=== PATIENT | female | born 1935 | race Two or more races ===

== ENCOUNTER 2024-05-14 16:40 | Inpatient (IN) | payer MEDICARE, MEDICAID, SELFPAY ==
[2024-05-14] VITALS (17 sets, daily range): BP systolic 128–210; BP diastolic 76–105; PULSE 60–78; RESP 16–18; TEMP 36.3–36.6; O2SAT 94–100; BMI 29.5
--- NOTE | 2024-05-14 16:41 | PC.NURSE ---
Pt. arrived from home, per auto design detailer Nahum family called because pt. was choking, on scene Nahum stated pt. was a GCS of 15, then slowly started to decline and pt.'s speech became slurred. Stroke alert called and pt. taken straight to CT.
--- NOTE | 2024-05-14 16:43 | EKG_ITS ---
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
--- NOTE | 2024-05-14 16:43 | XR_ITS ---
Examination: CT brain head without contrast. 2-D sagittal coronal reconstructions Date and time of exam:May 14, 2024 1645 hrs. Comparison December 20, 2022 Indications: Stroke alert, onset focal neurologic deficit today, history prior stroke left cerebellar hemisphere Technique: Multiple CT axial sections of the brain have been obtained, 5 mm slice thickness. Contrast has not been administered. 2-D sagittal, coronal reconstructions have been obtained Low dose protocols were performed. One or more of the following dose reduction techniques were used; automated exposure control, adjustment of the mA and/or KV according to patient size, use of iterative reconstruction technique. Findings: No significant ventricular enlargement. Stable small calcification right frontal lobe Old infarct left cerebellar hemisphere Intra-axial or extra-axial hemorrhage density is not seen. No mass effect or midline shift Basal cisterns are not remarkable. Fourth ventricle is midline. Cranial vault intact. Impression: Negative for acute hemorrhage, mass effect or midline shift
--- NOTE | 2024-05-14 16:43 | XR_ITS ---
Examination: CTA carotids with intravenous contrast CTA brain, head with intravenous contrast. 2-D sagittal, coronal reconstructions. 3-D reconstructions. Exam date and time: May 14, 2024 1649 hrs. Indications: New onset slurred speech beginning 30 minutes ago, stroke alert CTDI: vol (mGy) 35.9 DLP: (mGycm) 437 Technique: Multiple CTA axial brain, head carotid images post intravenous contrast injection 75 cc, Isovue-370. 2-D sagittal, coronal reconstructions. 3-D reconstructions, 3-D post processing including vascular maximum intensity projection images. Low dose protocols were performed. One or more of the following dose reduction techniques were used; automated exposure control, adjustment of the mA and/or KV according to patient size, use of iterative reconstruction technique. Findings: No significant common carotid carotid bifurcation or internal carotid artery stenoses No filling of the left vertebral artery in the neck except for distally which may represent retrograde flow There is incomplete filling of the M1 segments of both middle cerebral arteries There is incomplete filling of the left posterior cerebral artery, clinical correlation advised No acute thrombus is depicted Impression: There is no filling of the left vertebral artery the neck except for distally which may represent retrograde flow There is incomplete filling of the M1 segments posterior cerebral arteries and left posterior cerebral artery, clinical correlation advised Of note, differential for the extensive edema on the brain scan today may be secondary to brain neoplasm rather than acute infarcts
--- NOTE | 2024-05-14 16:44 | PC.NURSE ---
Dr. Madrid on tele monitor talking with pt., pt. able to identify cactus, glove and person. Pt. GCS OF 15.
--- NOTE | 2024-05-14 16:47 | EDNOTE_ITS ---
Neuro Symptoms Deficit-RME/HPI General Chief Complaint: Altered Mental Status Stated Complaint: STROKE Time Seen by Provider: 05/14/24 16:43 Arrival date/time: 05/14/24 16:40 Limitations: no limitations RME / HPI RME / HPI Narrative: 88 year old female with history of hypertension, s/p pacemaker placement presents to the ED BIBA from home for stroke like symptoms today. Per medics, family on scene reported patient had an episode of becoming stiff with a blank stare, occurring only once at ~ 16:07. When they arrived on scene state the patient initially was speaking full sentences, in Korean, and refusing to come to the hospital. Medics state while checking her vitals noted patient began babbling and speech became incomprehensible. On arrival to ED patient noted to have facial droop and aphasia. Related Data Allergies Allergy/AdvReac Type Severity Reaction Status Date / Time NKA* Allergy Uncoded 12/20/22 14:11 Review of Systems Review of Systems Systems Reviewed: All systems reviewed, normal except as documented Past Medical History Past Medical History CARDIAC: Positive Congestive Heart Failure and Hypertension RESPIRATORY: Negative Chronic Obstructive Pulmonary Disease (COPD) GENITOURINARY: Negative Renal Disease ENDOCRINE: Negative Diabetes Mellitus Type 1 or Diabetes Mellitus Type 2 Social History SMOKING STATUS: Never smoker ED Exam Narrative Physical exam: Physical exam is from arrival General Limitations: Present no limitations General appearance: Present other (aphasic, making noisy breath sounds and had a slight facial droop on the left, was able to move all 4 extremities ) Head Head exam: Present atraumatic, normocephalic and normal inspection Eye Eye exam: Present normal appearance and EOMI ENT ENT exam: Present normal exam, normal oropharynx and mucous membranes moist Neck Neck exam: Present normal inspection and full ROM Chest Chest inspection: Present normal inspection and symmetric chest wall rise Respiratory Respiratory exam: Present normal lung sounds bilaterally Cardiovascular Cardiovascular exam: Present regular rate, normal rhythm and normal heart sounds Abdominal Exam Abdominal exam: Present soft and normal bowel sounds Extremities Exam Extremities exam: Present normal inspection and full ROM Back Exam Back exam: Present normal inspection and full ROM Neurological Exam Neurological exam: Present other (aphasic, making noisy breath sounds and had a slight facial droop on the left, was able to move all 4 extremities ) Skin Skin exam: Present warm, dry, intact and normal color Course Course Course Narrative: 1800: Patient signed out to Dr. Durbin pending remainder of work-up and admission. Quality Measures Suspected type of Stroke: Non Acute Last known well (date): 05/14/24 Last known well (time): 16:30 Tenecteplase given: Reason(s) TPA not given: Stroke severity too mild (non-disabling) not given stroke Orders Category Date Time Status Patient Condition Routine Admission 05/14/24 20:33 Ordered Activity as Tolerated Routine Care 05/14/24 20:34 Ordered Bedside Blood Glucose NOW Care 05/14/24 16:43 Active COVID-19 Screening Questionnaire NOW Care 05/14/24 19:33 Active Junior Linux Administrator NOW Care 05/14/24 16:43 Active Continuous Pulse Oximetry NOW Care 05/14/24 16:43 Completed Decision to Admit X1 Care 05/14/24 19:33 Active EKG (ED ONLY) *Do not use* NOW Care 05/14/24 16:43 Completed In and Out Catheter NEEDED Care 05/14/24 16:43 Active Insert IV NOW Care 05/14/24 16:43 Active Intake and Output QSHIFT Care 05/14/24 20:45 Ordered NIH Stroke Scale now Care 05/14/24 16:43 Active NPO NOW Care 05/14/24 16:43 Active NPO NOW Care 05/14/24 20:34 Active Notify provider NEEDED Care 05/14/24 20:33 Active Nurse Swallow Screen x1 Care 05/14/24 16:43 Active Seizure precautions NEEDED Care 05/14/24 20:34 Active Consult to Cardiology Stat Cons 05/14/24 20:59 Ordered Consult to Neurology / Tele-Neurology Routine Cons 05/14/24 16:43 Active Consult to Neurology / Tele-Neurology Routine Cons 05/14/24 20:38 Active Diet NPO (NOW) Diet 05/14/24 20:[address] angio stroke protocol Stat Exams 05/14/24 16:[address] stroke protocol Stat Exams 05/14/24 16:43 Completed EKG (ED Only) Stat Exams 05/14/24 16:43 Ordered XR chest 1V post procedure Stat Exams 05/14/24 17:25 Completed ABG [Arterial Blood Gas] Stat Lab 05/14/24 17:16 Completed Arterial Blood Gas Stat Lab 05/14/24 18:30 Completed Blood Culture (Lab) Routine Lab 05/14/24 21:02 Received CBC AM DRAW Lab 05/15/24 05:00 Ordered CBC AM DRAW Lab 05/16/24 05:00 Ordered CBC AM DRAW Lab 05/17/24 05:00 Ordered CBC Stat Lab 05/14/24 16:54 Completed Comprehensive Metabolic Panel AM DRAW Lab 05/15/24 05:00 Ordered Comprehensive Metabolic Panel AM DRAW Lab 05/16/24 05:00 Ordered Comprehensive Metabolic Panel AM DRAW Lab 05/17/24 05:00 Ordered Comprehensive Metabolic Panel Stat Lab 05/14/24 16:54 Completed Drug Screen,Urine Stat Lab 05/14/24 17:37 Completed HCG Titer if Positive Stat Lab 05/14/24 16:54 Completed Magnesium AM DRAW Lab 05/15/24 05:00 Ordered Magnesium AM DRAW Lab 05/16/24 05:00 Ordered Magnesium AM DRAW Lab 05/17/24 05:00 Ordered Magnesium Stat Lab 05/14/24 16:54 Completed Partial Thromboplastin Time Stat Lab 05/14/24 18:42 Completed Phosphorous AM DRAW Lab 05/15/24 05:00 Ordered Phosphorous AM DRAW Lab 05/16/24 05:00 Ordered Phosphorous AM DRAW Lab 05/17/24 05:00 Ordered Prothrombin Time with INR Stat Lab 05/14/24 18:42 Completed Sputum Culture and Gram Stain Stat Lab 05/14/24 17:25 Ordered Troponin I Stat Lab 05/14/24 16:54 Completed Urinalysis Stat Lab 05/14/24 17:37 Completed Acetaminophen Supp [Tylenol Supp] Med 05/14/24 20:31 Active 650 mg ME Q6HR PRN Etomidate Inj [Amidate Inj] Med 05/14/24 17:11 Discontinued 20 mg IVP X1 ONE Heparin Inj Med 05/14/24 22:00 Active 5,000 unit SC Q8HR Ondansetron Inj [Zofran Inj] Med 05/14/24 16:43 Active 4 mg IV Q4HR PRN Propofol 1,000 mg Ivpb [Diprivan Ivpb] Med 05/14/24 18:05 Active 1,000 mg in 100 ml IV 5 mcg/kg/min Rocuronium Inj [Zemuron Inj] Med 05/14/24 17:12 Discontinued 50 mg IVP X1 ONE fentaNYL 2,500 MCG/250 ML BAG [Sublimaze Inj 2,500 MCG/ Med 05/14/24 20:39 Active 250 ML BAG] 2,500 mcg in 250 ml IV 25 mcg/hr Code Status Routine Oth 05/14/24 20:31 Ordered Oxygen Delivery NOW RT 05/14/24 16:43 Active Volume Ventilator Stat RT 05/14/24 Active Reevaluation(s) Reevaluation #1: I was called in to the room by RN. Reports while coming back from CT patient began to having episodes of noisy/snoring respiration. Patient obtunded and unresponsive, symmetrical face. Patient saturating 91-92% on room air. Decision was made to intubate to protect her airway. Time: 17:08 Reevaluation #2: I spoke with patients daughter and family. We reviewed all the results, analysis, and treatment plans. Time: 17:50 Vital Signs Vital signs: Vital Signs Pulse Rate 60 05/14/24 16:41 Procedures -ED Intubation Time out performed: Yes sedative: Etomidate Mg Given: 20 paralytic: Rocuronium Mg Given: 50 Laryngoscope: fiber optic video scope Assist Device Used: fiber optic device ET Tube Size: 7 ET Tube Uncuffed: No Tube Secured Depth (cm): 22 Tube Secured Location: other (gum) Tube Placement Confirmation: visualized tube passing through cords, equal breath sounds bilaterally, no breath sounds over epigastrium and confirmation by capnometry Patient Tolerated Procedure: well and no complications Intubation Complications: none Neuro Symptoms / Deficit MDM Narrative MDM Narrative:: Negrita Crawford am scribing for and in the presence of Dr. Ramírez. Patient data External records reviewed:: [facility] previous records (I reviewed ED visit on 12/20/2022) and EMS form Clinical information provided by:: EMS Social determinants that could affect healthcare access:: none Patient has the following chronic illnesses:: Hypertension, s/p pacemaker placement How is presenting disease/condition affected by chronic disease/condition?: exacerbated by Evaluation data The following diagnostics were reviewed and interpreted by me:: lab results, radiology exam(s) and EKG tracing(s) (Atrial paced, rate 59, no acute ST or T- wave changes, no STEMI. ) Lab and/or radiology exams considered but not ordered:: None Interpretation Summary: Ordering Physician: Josué Ramírez MD Date of Service: 05/14/24 Procedure(s): CT stroke protocol Accession Number(s): [id number] cc: Josué Ramírez MD; Jayden Ambrose MD~ Examination: CT brain head without contrast. 2-D sagittal coronal reconstructions Date and time of exam:May 14, 2024 1645 hrs. Comparison December 20, 2022 Indications: Stroke alert, onset focal neurologic deficit today, history prior stroke left cerebellar hemisphere Technique: Multiple CT axial sections of the brain have been obtained, 5 mm slice thickness. Contrast has not been administered. 2-D sagittal, coronal reconstructions have been obtained Low dose protocols were performed. One or more of the following dose reduction techniques were used; automated exposure control, adjustment of the mA and/or KV according to patient size, use of iterative reconstruction technique. Findings: No significant ventricular enlargement. Stable small calcification right frontal lobe Old infarct left cerebellar hemisphere Intra-axial or extra-axial hemorrhage density is not seen. No mass effect or midline shift Basal cisterns are not remarkable. Fourth ventricle is midline. Cranial vault intact. Impression: Negative for acute hemorrhage, mass effect or midline shift Dictated By: Jayden Ambrose MD Signed By: <Electronically signed by Jayden Ambrose MD in OV> 05/14/241648 Ordering Physician: Josué Ramírez MD Date of Service: 05/14/24 Procedure(s): CT angio stroke protocol Accession Number(s): [id number] cc: Josué Ramírez MD; Jayden Ambrose MD; NO PRIMARY/FAMILY,PHYSICIAN~ Examination: CTA carotids with intravenous contrast CTA brain, head with intravenous contrast. 2-D sagittal, coronal reconstructions. 3-D reconstructions. Exam date and time: May 14, 2024 1649 hrs. Indications: New onset slurred speech beginning 30 minutes ago, stroke alert CTDI: vol (mGy) 35.9 DLP: (mGycm) 437 Technique: Multiple CTA axial brain, head carotid images post intravenous contrast injection 75 cc, Isovue-370. 2-D sagittal, coronal reconstructions. 3-D reconstructions, 3-D post processing including vascular maximum intensity projection images. Low dose protocols were performed. One or more of the following dose reduction techniques were used; automated exposure control, adjustment of the mA and/or KV according to patient size, use of iterative reconstruction technique. Findings: No significant common carotid carotid bifurcation or internal carotid artery stenoses No filling of the left vertebral artery in the neck except for distally which may represent retrograde flow There is incomplete filling of the M1 segments of both middle cerebral arteries There is incomplete filling of the left posterior cerebral artery, clinical correlation advised No acute thrombus is depicted Impression: There is no filling of the left vertebral artery the neck except for distally which may represent retrograde flow There is incomplete filling of the M1 segments posterior cerebral arteries and left posterior cerebral artery, clinical correlation advised Of note, differential for the extensive edema on the brain scan today may be secondary to brain neoplasm rather than acute infarcts Dictated By: Jayden Ambrose MD Signed By: <Electronically signed by Jayden Ambrose MD in OV> 05/14/24 1747 Medications / Prescriptions Medications or Prescriptions considered but not ordered:: None Medication administrations:: Medication Administration History Acetaminophen (Acetaminophen Supp 650 Mg Supp) 650 mg ME Q6HR PRN PRN Reason: Fever > 100.4 Stop: 06/13/24 20:30 Heparin Sodium (Porcine) (Heparin Sod Inj 5000 Unit/Ml Vial) 5,000 unit SC Q8HR [facility] Stop: 05/28/24 21:59 Last Admin: 05/15/24 05:13 Dose: 5,000 unit Documented By: MALIK Co-signed By: MAME Admin: 05/14/24 22:56 Dose: 5,000 unit Documented By: MALIK Co-signed By: SA Propofol (Diprivan Ivpb) 1,000 mg in 100 mls @ 2.273 mls/hr IV .Q24H PRN; Protocol PRN Reason: PER PROTOCOL Stop: 06/13/24 18:04 Last Titration: 05/15/24 05:05 Dose: 0 mcg/kg/min, 0 mls/hr Documented By: Titration: 05/15/24 05:00 Dose: 5 mcg/kg/min, 2.273 mls/hr Documented By: Titration: 05/15/24 04:00 Dose: 10 mcg/kg/min, 4.545 mls/hr Documented By: Titration: 05/15/24 03:00 Dose: 10 mcg/kg/min, 4.545 mls/hr Documented By: Titration: 05/15/24 02:00 Dose: 10 mcg/kg/min, 4.545 mls/hr Documented By: Titration: 05/15/24 01:00 Dose: 10 mcg/kg/min, 4.545 mls/hr Documented By: Titration: 05/15/24 00:00 Dose: 10 mcg/kg/min, 4.545 mls/hr Documented By: Titration: 05/14/24 23:05 Dose: 10 mcg/kg/min, 4.545 mls/hr Documented By: Titration: 05/14/24 23:00 Dose: 15 mcg/kg/min, 6.818 mls/hr Documented By: Titration: 05/14/24 22:31 Dose: 15 mcg/kg/min, 6.818 mls/hr Documented By: Titration: 05/14/24 19:37 Dose: 15 mcg/kg/min, 6.818 mls/hr Documented By: Titration: 05/14/24 19:00 Dose: 10 mcg/kg/min, 4.545 mls/hr Documented By: Admin: 05/14/24 18:18 Dose: 5 mcg/kg/min, 2.273 mls/hr Documented By: ED Co-signed By: DO Fentanyl Citrate (Sublimaze Inj 2,500 Mcg/250 Ml Bag) 2,500 mcg in 250 mls @ 2.5 mls/hr IV .Q24H PRN; Protocol PRN Reason: PER PROTOCOL Stop: 05/19/24 20:38 Last Titration: 05/15/24 05:00 Dose: 75 mcg/hr, 7.5 mls/hr Documented By: Titration: 05/15/24 04:00 Dose: 75 mcg/hr, 7.5 mls/hr Documented By: Titration: 05/15/24 03:00 Dose: 75 mcg/hr, 7.5 mls/hr Documented By: Titration: 05/15/24 02:00 Dose: 75 mcg/hr, 7.5 mls/hr Documented By: Titration: 05/15/24 01:00 Dose: 75 mcg/hr, 7.5 mls/hr Documented By: Titration: 05/15/24 00:00 Dose: 75 mcg/hr, 7.5 mls/hr Documented By: Titration: 05/14/24 23:05 Dose: 75 mcg/hr, 7.5 mls/hr Documented By: Titration: 05/14/24 23:00 Dose: 2.5 mcg/hr, 0.25 mls/hr Documented By: ZTuan Admin: 05/14/24 22:35 Dose: 25 mcg/hr, 2.5 mls/hr Documented By: MALIK Co-signed By: Sodium Chloride (Ns) 500 mls @ 999 mls/hr IV .Q31M ONE Stop: 05/15/24 05:40 Last Admin: 05/15/24 05:13 Dose: 999 mls/hr Documented By: MALIK Norepinephrine/Dextrose (Levophed In D5w 8mg/250ml) 8 mg in 250 mls @ 7.102 mls/hr IV .Q24H PRN; Protocol PRN Reason: PER PROTOCOL Stop: 06/14/24 05:09 Ondansetron HCl (Ondansetron Inj 2 Mg/Ml Inj 2 Ml) 4 mg IV Q4HR PRN PRN Reason: NAUSEA OR VOMITING Stop: 06/13/24 16:42 Discontinued Medications Etomidate (Etomidate Inj 2 Mg/Ml Vial 10 Ml) 20 mg IVP X1 ONE Stop: 05/14/24 17:12 Last Admin: 05/14/24 17:20 Dose: 20 mg Documented By: ED Norepinephrine/Dextrose (Levophed In D5w 8mg/250ml) Confirm Administered Dose 8 mg in 250 mls @ ud IV .STK-MED ONE Stop: 05/15/24 05:00 Last Admin: 05/15/24 05:19 Dose: Not Given Documented By: MALIK Non-Admin Reason: Returned to Pyxis. Rocuronium [place] (Rocuronium Inj 10 Mg/Ml Vial 10 Ml) 50 mg IVP X1 ONE Stop: 05/14/24 17:13 Last Admin: 05/14/24 17:21 Dose: 50 mg Documented By: ED Co-signed By: JUAN See above Consultations Consultation(s) initiated? (list below): Yes Consultation #1 (Physician, Specialty, Details): I spoke with teleneurologist Dr. Vargas. Discussed patients PMHx, HPI, ED course, exam findings, and radiology results. Reports patient is not a tpa candidate given her symptoms had resolved, patient was following commands and answering questions appropriately. Advised it may be a metabolic disturbance vs seizure activity. Recommended EEG and MRI brain. Time: 17:05 Consultation #2 (Physician, Specialty, Details): I again spoke with teleneurologist Dr. Vargas after patient had acute changes in mental status. State he has reviewed CTA and there is no LVO. Time: 17:10 Consultation #3 (Physician, Specialty, Details): I spoke with paragliding instructor Dr. Gamino. Discussed patients PMHx, HPI, ED course, exam findings, labs, and CT head results. Advised the work-up is not yet complete and will call with updates. Time: 17:47 Diagnosis Neuro Differential Diagnosis: subarachnoid hemorrhage, cerebrovascular accident and transient cerebral ischemia Most likely diagnosis given after review of the tests above:: Abtunded. Intubated. AMS Admission Indicated Admission indicated?: indicated Explain why admission is indicated or not indicated:: Patient signed out to Dr. Durbin pending admission. Admission Request Was there a request for admission?: No Disposition Plan Disposition Plan: other (specify) (Signed out to Dr. Durbin.) Critical Care Time Critical Care Time Critical Care Time: Yes Total Critical Care Time (min.): 30 Attestation: The high probability of sudden, clinically significant deterioration in the patient's condition required the highest level of my preparedness to intervene urgently. The services I provided to this patient were to treat and/or prevent clinically significant deterioration. Services included the following: chart data review, reviewing nursing notes and/or old charts, documentation time, custom decorating consultant collaboration regarding findings and treatment options, medication orders and management, direct patient care, vital sign assessments and ordering, interpreting and reviewing diagnostic studies and lab tests. Aggregate critical care time includes only time during which I was engaged in work directly related to the patient's care, as described above, whether at bedside or elsewhere in the Emergency Department. It did not include time spent performing other reported procedures or the services of residents, students, nurses or physician assistants. Discharge Plan Plan Patient Disposition: Admit Acute Care w/in Hospital Disposition Comment: Dr. Gamino, ICU Problem List Clinical Impression: Altered mental status, Acute respiratory failure, Hypertensive urgency, Cerebral edema
--- NOTE | 2024-05-14 17:08 | PC.NURSE ---
Pt. to room 4, Dr. Ramírez bedside, pt. not answering and has noisy breathing.
[2024-05-14 17:20] LABS: Base Excess 5 (-3-3); HCO3 31 mEq/L (20-26); Inspired Oxygen, FIO2 21 %; O2 Saturation 94 % (91-98); PCO2 55 mmHg (32.0-48.0); PO2 70 mmHg (83-108); pH, Arterial 7.36 (7.35-7.45)
[2024-05-14] MEDS: ETOMIDATE INJ 2 MG/ML VIAL 10 ML 20 MG IVP (17:20)
[2024-05-14 17:21] LABS: Alanine Aminotransferase 19 U/L (10-49); Albumin, Serum 4.3 gm/dL (3.4-4.8); Albumin/Globulin Ratio 1.5 (1.2-2.2); Alkaline Phosphatase 83 U/L (46-116); Anion Gap 4 (7-16); Aspartate Amino Transferase 29 U/L (0-34); BUN/Creatinine Ratio 20 Ratio (12-20); Bilirubin,Total 0.3 mg/dL (0.3-1.2); Blood Urea Nitrogen 16 mg/dL (9-23); Calcium 9.4 mg/dL (8.3-10.6); Calcium (Corrected) 9.4 mg/dL (8.5-10.1); Carbon Dioxide 30.1 mMol/L (20.0-31.0); Chloride 98 mMol/L (98-107); Creatinine (Component) 0.8 mg/dL (0.6-1.3); Estimated Creatinine Clearance 46.3 mL/min (>60); Globulin 2.9 gm/dL (2.3-3.5); Glucose 94 mg/dL (74-106); Osmolality,Calculated 265 (275-295); Potassium 5.3 mMol/L (3.4-5.1); Sodium 132 mMol/L (136-145); Total Protein 7.2 gm/dL (5.7-8.2); Troponin I < 0.020 ng/mL (0.0-0.045); eGFR > 60 See Note
[2024-05-14 17:21] LABS: Allen Test Performed/OK; Puncture Site Right Radial
[2024-05-14] MEDS: ROCURONIUM INJ 10 MG/ML VIAL 10 ML 50 MG IVP (17:21)
--- NOTE | 2024-05-14 17:23 | ESCONSULT_ITS ---
Tele Neuro Consultation Consultation Date 05/14/24 Most Recent Vital Signs Last Vital Signs Pulse 60 05/14/24 16:41 Consultation Narrative [facility] Tele[facility]urology Consult Services Patient Name:???Kandice Llamas Date of :???1935 Identification Number:??? Date of Service:???05/14/2024 16:40:45 Diagnosis:?G93.49 - Encephalopathy Multifactorial Impression: ?88 y/o woman presenting with AMS. Not a thrombolytic candidate as there is no focal deficits on examination suggestive of stroke. Upon my initial evaluation she became responsive, talkative and was able to follow commands with NIHSS. However after my evaluation I was called back by ED stating that she had again become obtunded. No focal deficits noted per ED, continues to not be a thrombolytic candidate as stroke looks unlikely. CTA unrevealing for basilar stenosis/occlusion on my personal review. Metabolic disturbance a possibility, as is seizure activity. Would recommend cEEG monitoring and MRI brain. Sign Out: ? Discussed with Emergency Department Provider Advanced Imaging: CTA Head and Neck Completed. CTP Completed. LVO:No Patient in not a candidate for GELY Metrics: Last Known Well: 05/14/2024 16:30:00 Dispatch Time: 05/14/2024 16:40:45 Arrival Time: 05/14/2024 16:40:00 Initial Response Time: 05/14/2024 16:42:41Symptoms: unresponsiveness. Initial patient interaction: 05/14/2024 16:52:28 NIHSS Assessment Completed: 05/14/2024 17:05:12Patient is not a candidate for Thrombolytic. Thrombolytic Medical Decision: 05/14/2024 17:05:17Patient was not deemed candidate for Thrombolytic because of following reasons: Resolved symptoms . I personally Reviewed the CT Head and it Showed no acute hemorrhage Primary Provider Notified of Diagnostic Impression and Management Plan on: 05/14/2024 17:10:46 History of Present Illness:Patient is a 88 year old Female. Patient was brought by EMS for symptoms of unresponsiveness. 88 y/o woman with history of CHF and HTN presenting with unresponsiveness. She was at home, family thought she was choking due becoming stiff and stared at around 1600. EMS got there and she became progressively more unresponsive and unable to speak. Past Medical History: ?Hypertension ?Stroke Medications: No Anticoagulant use? No Antiplatelet use Reviewed EMR for current medications Allergies:? Reviewed Social History: Drug Use: No Family History: There is no family history of premature cerebrovascular disease pertinent to this consultation ROS : 14 Points Review of Systems was performed and was negative except mentioned in HPI. Past Surgical History: There Is No Surgical History Contributory To Today?s Visit Examination: BP(180/65),?Pulse(61), 1A: Level of Consciousness - Alert; keenly responsive?+ 0 1B: Ask Month and Age - 1 Question Right?+ 1 1C: Blink Eyes & Squeeze Hands - Performs Both Tasks?+ 0 2: Test Horizontal Extraocular Movements - Normal?+ 0 3: Test Visual Sifuentes - No Visual Loss?+ 0 4: Test Facial Palsy (Use Grimace if Obtunded) - Normal symmetry?+ 0 5A: Test Left Arm Motor Drift - No Drift for 10 Seconds?+ 0 5B: Test Right Arm Motor Drift - No Drift for 10 Seconds?+ 0 6A: Test Left Leg Motor Drift - No Drift for 5 Seconds?+ 0 6B: Test Right Leg Motor Drift - No Drift for 5 Seconds?+ 0 7: Test Limb Ataxia (FNF/Heel-Sherwood) - No Ataxia?+ 0 8: Test Sensation - Normal; No sensory loss?+ 0 9: Test Language/Aphasia - Normal; No aphasia?+ 0 10: Test Dysarthria - Normal?+ 0 11: Test Extinction/Inattention - No abnormality?+ 0 NIHSS Score:?1 Pre-Morbid Modified [place] Scale:Unable to assess Spoke with :?Dr. Ramírez This consult was conducted in real time using interactive audio and video technology. Patient was informed of the technology being used for this visit and agreed to proceed. Patient located in hospital and provider located at home/office setting. Patient is being evaluated for possible acute neurologic impairment and high probability of imminent or life-threatening deterioration. I spent total of 41 minutes providing care to this patient, including time for face to face visit via telemedicine, review of medical records, imaging studies and discussion of findings with providers, the patient and/or family. Dr Kelin Vargas [facility] For Inpatient follow-up with [facility] physician please call [facility] at . As we are not an outpatient service for any post hospital discharge needs please contact the hospital for assistance. If you have any questions for the [facility] physicians or need to reconsult for clinical or diagnostic changes please contact us via [facility] at .
--- NOTE | 2024-05-14 17:24 | PC.NURSE ---
Pt. intubated by Dr. Ramírez, tube size 7.0, 22@ the [facility], Anahy RN, Yola transmitter engineer in charge and Julianna RT at bedside.
--- NOTE | 2024-05-14 17:25 | XR_ITS ---
Examination: AP chest single view Technique: AP portable supine chest single view Exam date and time: May 14, 2024 at 1738 hrs. Comparison December 20, 2022 Indications: Hypoxic respiratory failure postintubation today, stroke alert altered mental status Findings: Tracheal tube tip 3.3 cm above lucero Prominent vascular congestion with early septal edema at the lung bases Mild enlargement cardiac contour Transvenous dual-chamber bipolar cardiac leads satisfactory position Orogastric tip appears to project in the duodenum Impression: Mild heart failure
[2024-05-14 17:43] LABS: Collection Type, Urine Clean Catch; Squamous Epithelial Cell,Urine 0 /hpf (0-5)
[2024-05-14 17:48] LABS: Bilirubin,Urine Negative (Negative); Blood,Urine Negative (Negative); Clarity,Urine Clear (Clear/Hazy); Color,Urine Lt-Yellow (Lt Yel-Yel); Glucose, Urine Negative (Negative); Ketones,Urine Negative (Negative); Leukocyte Esterase,Urine Negative (Negative); Nitrite,Urine Negative (Negative); PH,Urine 6.5 (5.0-7.0); Protein,Urine Negative (Neg - Trace); RBC,Urine 1 /hpf (0-3); Specific Gravity,Urine 1.032 (1.001-1.035); Urobilinogen,Urine Negative mg/dL (0.0-1.0); WBC,Urine < 1 /hpf (0-5)
[2024-05-14 17:54] LABS: Amphetamine/Methamp Scrn,U Negative (Negative); Barbiturate Screen,Urine Negative (Negative); Benzodiazepines Screen,Urine Negative (Negative); Benzoylecgonine Screen, Ur Negative (Negative); Fentanyl Screen,Urine Negative (Negative); Opiate Screen,Urine Negative (Negative); THC Screen,Urine Negative (Negative)
[2024-05-14 18:02] LABS: Basophils # (Auto) 0.1 Thou/mm3 (0.0-0.2); Basophils % (Auto) 1 % (0-2.5); Eosinophils # (Auto) 0.3 Thou/mm3 (0.0-0.5); Eosinophils % (Auto) 6 % (0-10); Hematocrit 31.4 % (36.0-46.0); Hemoglobin 10.4 g/dL (12.0-16.0); Immature Granulocytes % (Auto) 0 % (0-0); Immature Granulocytes Auto 0.01 Thou/mm3 (0.00-0.00); Lymphocytes # (Auto) 1.8 Thou/mm3 (1.0-4.8); Lymphocytes % (Auto) 42 % (10-50); Mean Corpuscular HGB Conc 33.1 g/dl (31.0-37.0); Mean Corpuscular Hemoglobin 29.1 pg (25.0-35.0); Mean Corpuscular Volume 88 fL (80-100); Monocytes # (Auto) 0.4 Thou/mm3 (0.0-0.8); Monocytes % (Auto) 11 % (0-12); Neutrophils # (Auto) 1.7 Thou/mm3 (1.8-7.7); Neutrophils % (Auto) 40 % (37-80); Nucleated Red Blood Cell % 0 /100 WBC (0); Platelet Count 181 Thou/mm3 (140-440); RDW Standard Deviation 51.6 fL (36.4-46.3); Red Blood Count 3.58 Miln/mm3 (4.00-5.20); White Blood Count 4.2 Thou/mm3 (3.6-11.0)
[2024-05-14 18:09] LABS: HCG Titer if Positive Negative
[2024-05-14] MEDS: PROPOFOL 1,000 MG IVPB 1,000 MG/100 ML VIAL 2.273 MG IV (18:18)
--- NOTE | 2024-05-14 18:36 | PC.NURSE ---
Vent settings: TV 350, RR 18, PEEP 5.0, FiO2 100%.
[2024-05-14 18:38] LABS: Allen Test Performed/OK; Base Excess 6 (-3-3); HCO3 30 mEq/L (20-26); Inspired Oxygen, FIO2 100 %; O2 Saturation 101 % (91-98); PCO2 39 mmHg (32.0-48.0); PO2 469 mmHg (83-108); Puncture Site Right Radial; pH, Arterial 7.49 (7.35-7.45)
--- NOTE | 2024-05-14 18:38 | PC.NURSE ---
Daughter Radha Sommers bedside states pt. has a pacemaker and has had it for 9 years.
--- NOTE | 2024-05-14 18:42 | PC.NURSE ---
Missy Sommers [phone].
--- NOTE | 2024-05-14 18:55 | PD.EDADDENDU ---
Emergency Room Addendum <Arsh Perera - Last Filed: 05/14/24 18:56> Addendum Narrative: 1800: Care assumed from Dr. Ramírez, the previous shift emergency physician. Past medical, surgical, social and family history reviewed. Vitals and home medications reviewed. I will assume the care of the patient at this time, pending CTA results and final disposition. Please refer to the emergency department record for history and examination from initial visit. OBSERVATION NOTE: The patient was placed in ED observation care at 05/13/24 at 1800. The patient was placed in ED observation care because of pending authorization for SNF placement. The patients past medical history, social history, and family history were reviewed. The plan of care will include serial examinations. <Samara Durbin MD - Last Filed: 05/14/24 19:54> Addendum Narrative: 1800: Care assumed from Dr. Ramírez, the previous shift emergency physician. Past medical, surgical, social and family history reviewed. Vitals and home medications reviewed. I will assume the care of the patient at this time, pending CTA results and final disposition. Please refer to the emergency department record for history and examination from initial visit. CTA resulted. Discussed with Dr. Gamino for admission. MD Attestation <Arsh Perera - Last Filed: 05/14/24 18:56> Attestation Scribe Attestation: Ty, Darren Perera, am scribing for and in the presence of Dr. Durbin. Provider Notation: Although this document has been carefully reviewed, there may still be some phonetic and other typographical errors. These errors are purely grammatical due to imperfections in the software program and should not be construed in any way to compromise the substance of the patient's medical care during this visit.
[2024-05-14 19:03] LABS: INR 1.1 (0.9-1.3); Partial Thromboplastin Time 26.1 Seconds (22.0-36.0); Prothrombin Time 11.5 Seconds (9.0-12.2)
--- NOTE | 2024-05-14 20:08 | PC.NURSE ---
Rreport was received from Day shift RN. First contact wqith pt: Pt5 on a vet. Appears to be tolerating well. VS stable. Alvarado cath in place. OG in place. Pt has two IVs. 20g to R FA 20g to L FA. Pupils are equal. Pt is warm to the touch. Pt appears stable at this time.
--- NOTE | 2024-05-14 20:38 | PD.RESHP ---
Documentation for date of: 05/14/24 HPI History of Present Illness History of present illness: History obtained from daughter at bedside 88 yo female with PMH of heart failure, unspecified arrythmia s/p pacemaker implantation, stroke, hypertension, who was brought in by ambulance due to AMS. Per family member patient was in her usual state of health, went shopping today and when she arrived home patient fainted when trying to get out of the car so EMS where called, during these episode family members describe she had her eyes open, starring blank, was unresponsive and her jaw was very tight , denied tonic clonic movements or incontinence. Upon EMS arrival patient was talkative oriented, vitals within normal limits, however she suddenly developed slurred speech so she was brought to the ED. Patient's daughter referred she had an appointment on Apr 30 with cardiology to assess pacemaker battery, however patient missed appointment. Patient's daughter refers patient has had arm pain for 1 day for which she could have taken more of her pain medications. ED course: On arrival patient's vitals BP 210/104, HR 60, RR 18, afebrile, saturating adequately on room air. Pertinent labs: No leukocytosis, sodium 132, potassium 5.3, UA unremarkable, U tox unremarkable. Stroke alert was called, teleneurology was consulted who referred patient was not a thrombolytic candidate as there where no focal deficits on examination suggestive of stroke. Upon teleneuro initial evaluation she was responsive, talkative and was able to follow commands with NIHSS. She subsequently became unresponsive, and was intubated for airway protection. During episode patient's vitals remained within normal limits. PMH: As above Medications: Mirtazapine, hydralazine, Lasix, pregabalin, omeprazole, tramadol, clonidine, carvedilol, meclizine, lisinopril. Review of Systems Review of Systems Systems Reviewed: All systems reviewed, normal except as documented Exam Vital Signs Temp Pulse Resp BP Pulse Ox O2 Del Method FiO2 97.7 F 66 18 162/101 H 100 Mechanical Ventilation 100 05/14/24 20:00 05/14/24 20:00 05/14/24 20:00 05/14/24 20:00 05/14/24 20:00 05/14/24 20:00 05/14/24 19:00 Narrative Exam GENERAL: Intubated, sedated HEENT: Normocephalic, atraumatic and nontender.? Pupils are equal and reactive to light and accommodation.? NECK: Supple without adenopathy. [place]que[place] midline. no JVD.? CHEST: Heart rate and rythm normal, no murmurs, gallops auscultated. S1 & 2 normal insensity. LUNGS: Lung sounds are clear.? No wheezing, rales or ronchi.? ABDOMEN: Soft,symmetric,No abnormal masses palpated.? Bowel sounds are normoactive in all 4 quadrants. EXTREMITIES: Nontender.? bilateral 1+ pitting edema,? No cyanosis.? SKIN: No rashes noted. NEURO:? Sedated Results: Labs 05/14/24 16:54 05/14/24 22:47 Labs: Short CBC 05/14/24 Range/Units 16:54 WBC 4.2 (3.6-11.0) Thou/mm3 Hgb 10.4 L (12.0-16.0) g/dL Hct 31.4 L (36.0-46.0) % Plt Count 181 (140-440) Thou/mm3 BMP 05/14/24 16:54 Sodium 132 L Potassium 5.3 H Chloride 98 Carbon Dioxide 30.1 BUN 16 Creatinine 0.8 Glucose 94 Calcium 9.4 Cardiac Enzymes 05/14/24 Range/Units 16:54 Troponin I < 0.020 (0.0-0.045) ng/mL Liver Function 05/14/24 Range/Units 16:54 Total Bilirubin 0.3 (0.3-1.2) mg/dL AST 29 (0-34) U/L ALT 19 (10-49) U/L Alkaline Phosphatase 83 (46-116) U/L Albumin 4.3 (3.4-4.8) gm/dL Urine 05/14/24 Range/Units 17:37 Urine Color Lt-Yellow (Lt Yel-Yel) Urine Clarity Clear (Clear/Hazy) Urine pH 6.5 (5.0-7.0) Ur Specific [place] 1.032 (1.001-1.035) Urine Protein Negative (Neg - Trace) Urine Glucose (UA) Negative (Negative) ABG Interpretation ABG results: 05/14/24 05/14/24 17:16 18:30 ABG pH 7.36 7.49 H D ABG pCO2 55 H 39 D ABG pO2 70 L 469 H D ABG HCO3 31 H 30 H ABG O2 Saturation 94 101 H ABG Base Excess 5 H 6 H Quality Measures Quality Measures stroke Suspected type of Stroke: Non Acute Last known well (date): 05/14/24 Last known well (time): 16:30 Tenecteplase given: Reason(s) Tenecteplase not given: Stroke severity too mild (non-disabling) not given Rehab services: PT evaluation ordered VTE Prophylaxis: pharmaceutical Antithrombotic by day 2:: not indicated (describe) Statin ordered: not ordered Anticoagulation ordered for A-fib or flutter (current or hx): not indicated Advance care planning discussed with:: patient Medications Home Medications and Allergies Allergies Allergy/AdvReac Type Severity Reaction Status Date / Time NKA* Allergy Uncoded 12/20/22 14:11 Visit Medications Acetaminophen (Acetaminophen Supp 650 Mg Supp) 650 mg NV Q6HR PRN PRN Reason: Fever > 100.4 Stop: 06/13/24 20:30 Heparin Sodium (Porcine) (Heparin Sod Inj 5000 Unit/Ml Vial) 5,000 unit SC Q8HR JOANNA Stop: 05/28/24 21:59 Propofol (Diprivan Ivpb) 1,000 mg in 100 mls @ 2.273 mls/hr IV .Q24H PRN; Protocol PRN Reason: PER PROTOCOL Stop: 06/13/24 18:04 Last Titration: 05/14/24 19:37 Dose: 15 mcg/kg/min, 6.818 mls/hr Ondansetron HCl (Ondansetron Inj 2 Mg/Ml Inj 2 Ml) 4 mg IV Q4HR PRN PRN Reason: NAUSEA OR VOMITING Stop: 06/13/24 16:42 Discontinued Medications Etomidate (Etomidate Inj 2 Mg/Ml Vial 10 Ml) 20 mg IVP X1 ONE Stop: 05/14/24 17:12 Last Admin: 05/14/24 17:20 Dose: 20 mg Rocuronium [place] (Rocuronium Inj 10 Mg/Ml Vial 10 Ml) 50 mg IVP X1 ONE Stop: 05/14/24 17:13 Last Admin: 05/14/24 17:21 Dose: 50 mg Assessment & Plan Plan 88 yo female with PMH of heart failure, unspecified arrythmia s/p pacemaker implantation, stroke, hypertension, who was brought in by ambulance due to AMS. Per family member patient was in her usual state of health, went shopping today and when she arrived home patient fainted when trying to get out of the car so EMS where called, during these episode family members describe she had her eyes open, starring blank, was unresponsive and her jaw was very tight , denied tonic clonic movements or incontinence. Upon EMS arrival patient was talkative oriented, vitals within normal limits, however she suddenly developed slurred speech so she was brought to the ED. Patient's daughter referred she had an appointment on Apr 30 with cardiology to assess pacemaker battery, however patient missed appointment. Patient's daughter refers patient has had arm pain for 1 day for which she could have taken more of her pain medications.ED course: On arrival patient's vitals BP 210/104, HR 60, RR 18, afebrile, saturating adequately on room air. Pertinent labs: No leukocytosis, sodium 132, potassium 5.3, UA unremarkable, U tox unremarkable. Stroke alert was called, teleneurology was consulted who referred patient was not a thrombolytic candidate as there where no focal deficits on examination suggestive of stroke. Upon teleneuro initial evaluation she was responsive, talkative and was able to follow commands with NIHSS. She subsequently became unresponsive, and was intubated for airway protection. During episode patient's vitals remained within normal limits. AMUSEMENT OR RECREATION CARD CHECKER #Acute encephalopathy DDX: Stroke vs Seizure vs Polypharmacy vs cardiac syncope (less likely heart rate has remained within normal parameters on telemetry) -Head CTA: No large vessel occlusion, no hemorrhage, no midline shift -Follow-up MRI -Consult neurology, appreciate recommendations -Consult cardiology, appreciate recommendations CVS #History of heart failure, hypertension and unspecified arrhythmia SP pacemaker implantation in 2012 -Patient missed appointment for pacemaker battery check up 2 weeks ago -Since arrival to the ED patient's heart rate within normal limits on telemetry -On arrival patient was hypertensive, now blood pressure within normal limits Respiratory -SP intubation for airway protection due to GCS less than 8 -ABG postintubation within normal limits Renal -Stable GI -Stable Infectious -Stable -Follow-up blood cultures Heme-onc -Stable Disposition: Patient admitted to ICU following intubation for airway protection due to acute encephalopathy Diet and fluids: N.p.o. DVT prophylaxis: Heparin GI prophylaxis: None CODE STATUS: Full code Alvarado: In place Lines: Peripheral Patient's care discussed with attending physician, Dr Kd Cesar MD PGY3 Attending Provider Attestation/Addendum 58-year-old female with hypertension, history of CVA, brought on by ambulance because of unresponsiveness, altered mentation. The patient was with family members. Patient and family came from [facility]. According to the daughter the patient went to the outside stores in [facility] and on the way to [place] she requested to have them teach her on this. She sent to children's. When they reach their destination here [place] the patient tried to get of the car but she became stiff altered. She was quite unresponsive and then she improved. The patient's daughter said when EMS came she was little bit more oriented but then became unresponsive again. She was brought to the emergency room. Patient was subsequently intubated in the ER. CT scan of the brain showed no stroke. Troponin is negative. She has a pacemaker. Patient will be admitted to the ICU for closer monitoring. Workup needed. Her son said that she was supposed to see a front office administrator for pacemaker check. She is towards the end of her pacemaker battery life. Cardiology evaluation requested.
--- NOTE | 2024-05-14 20:53 | PC.NURSE ---
Admit MD at bedside now. pt resting qietly. Pts daughter in rm now . Pt stable.
--- NOTE | 2024-05-14 21:48 | PC.NURSE ---
Pt resting. VS stable.
[2024-05-14] MEDS: fentaNYL 2,500 MCG/250 ML BAG 2,500 MCG/250 ML BAG IV (22:35)
[2024-05-14] MEDS: HEPARIN SOD INJ 5000 UNIT/ML VIAL SC (22:56)
[2024-05-14 23:23] LABS: Anion Gap 5 (7-16); BUN/Creatinine Ratio 21 Ratio (12-20); Blood Urea Nitrogen 17 mg/dL (9-23); Calcium 9.9 mg/dL (8.3-10.6); Carbon Dioxide 30.6 mMol/L (20.0-31.0); Chloride 97 mMol/L (98-107); Creatinine (Component) 0.8 mg/dL (0.6-1.3); Estimated Creatinine Clearance 46.3 mL/min (>60); Glucose 101 mg/dL (74-106); Osmolality,Calculated 267 (275-295); Potassium 4.3 mMol/L (3.4-5.1); Sodium 133 mMol/L (136-145); eGFR > 60 See Note
[2024-05-15] VITALS (48 sets, daily range): BP systolic 65–159; BP diastolic 31–93; PULSE 60–115; RESP 9–23; TEMP 36.1–36.7; O2SAT 95–100; BMI 27.8
[2024-05-15 04:28] LABS: Base Excess 4 (-3-3); HCO3 29 mEq/L (20-26); Inspired Oxygen, FIO2 40 %; O2 Saturation 98 % (91-98); PCO2 42 mmHg (32.0-48.0); PO2 94 mmHg (83-108); pH, Arterial 7.45 (7.35-7.45)
[2024-05-15 04:29] LABS: Puncture Site Right Radial
[2024-05-15 04:30] LABS: Allen Test Performed/OK
[2024-05-15] MEDS: SODIUM CHLORIDE 0.9% 500 ML 500 ML 999 ML IV (05:13)
[2024-05-15] MEDS: HEPARIN SOD INJ 5000 UNIT/ML VIAL SC ×3 (05:13→21:15)
[2024-05-15 06:52] LABS: Basophils % (Auto) 1 % (0-2.5); Eosinophils # (Auto) 0.1 Thou/mm3 (0.0-0.5); Eosinophils % (Auto) 2 % (0-10); Hematocrit 32.1 % (36.0-46.0); Hemoglobin 10.7 g/dL (12.0-16.0); Immature Granulocytes % (Auto) 1 % (0-0); Immature Granulocytes Auto 0.05 Thou/mm3 (0.00-0.00); Lymphocytes # (Auto) 1.5 Thou/mm3 (1.0-4.8); Lymphocytes % (Auto) 17 % (10-50); Mean Corpuscular HGB Conc 33.3 g/dl (31.0-37.0); Mean Corpuscular Hemoglobin 29.4 pg (25.0-35.0); Mean Corpuscular Volume 88 fL (80-100); Monocytes # (Auto) 0.8 Thou/mm3 (0.0-0.8); Monocytes % (Auto) 9 % (0-12); Neutrophils # (Auto) 6.2 Thou/mm3 (1.8-7.7); Neutrophils % (Auto) 71 % (37-80); Nucleated Red Blood Cell % 0 /100 WBC (0); Platelet Count 205 Thou/mm3 (140-440); Red Blood Count 3.64 Miln/mm3 (4.00-5.20); White Blood Count 8.7 Thou/mm3 (3.6-11.0)
[2024-05-15 07:33] LABS: Alanine Aminotransferase 16 U/L (10-49); Albumin, Serum 3.7 gm/dL (3.4-4.8); Albumin/Globulin Ratio 1.4 (1.2-2.2); Alkaline Phosphatase 76 U/L (46-116); Anion Gap 5 (7-16); Aspartate Amino Transferase 35 U/L (0-34); BUN/Creatinine Ratio 24 Ratio (12-20); Bilirubin,Total 0.4 mg/dL (0.3-1.2); Blood Urea Nitrogen 17 mg/dL (9-23); Calcium 9.1 mg/dL (8.3-10.6); Calcium (Corrected) 9.3 mg/dL (8.5-10.1); Carbon Dioxide 25.6 mMol/L (20.0-31.0); Chloride 101 mMol/L (98-107); Creatinine (Component) 0.7 mg/dL (0.6-1.3); Estimated Creatinine Clearance 51.3 mL/min (>60); Globulin 2.6 gm/dL (2.3-3.5); Glucose 102 mg/dL (74-106); Magnesium 1.8 mg/dL (1.6-2.6); Osmolality,Calculated 266 (275-295); Phosphorous 2.9 mg/dL (2.4-5.1); Potassium 4.2 mMol/L (3.4-5.1); Sodium 132 mMol/L (136-145); Total Protein 6.3 gm/dL (5.7-8.2); eGFR > 60 See Note
--- NOTE | 2024-05-15 09:16 | PC.SS ---
Patient Kandice Llamas is a 88 Year old female admitted for AMS. SS contacted patient's daughter, Lakia Liu to complete initial assessment. Patient's daughter reported patient lives in [place] alone at home. Prior to admission patient was alert and oriented. Patient does have a [facility] provider. Patient does utilize a Rollator walker to assist with ambulation, patient is able to complete ADL's independently, however does require minimal assistance. Patients PCP is Dr. Alan in [place] as well as Plastic Installer Nohemy Meraz and a Neurologist as well. Patient's daughter Lakia Liu is patient's surrogate decision maker [phone]. At time of discharge patient will return home, family will provide transportation. Discharge plan: home Next of kin: Daughter, Lakia Liu
--- NOTE | 2024-05-15 10:11 | PD.IMCONS ---
HPI Data of Consult Requesting Physician: Theodore Yi MD Primary Care Provider: Physician No Primary/Family Consult Narrative History of present illness: This is a 88 yo female with PMH of heart failure, unspecified arrythmia s/p pacemaker implantation, stroke, hypertension, pt was seen in the ER with altered level of consciousness possible syncopy cardiology consulted currently pt denies chest pain EKG shows paced rhythm troponin negative cc:: cc: Theodore Yi MD Meds Home Medications and Allergies Allergies Allergy/AdvReac Type Severity Reaction Status Date / Time NKA* Allergy Uncoded 12/20/22 14:11 Exam Vital Signs Temp Pulse Resp BP Pulse Ox O2 Del Method FiO2 97 F 60 18 113/62 99 Mechanical Ventilation 40 05/15/24 08:00 05/15/24 09:00 05/14/24 22:38 05/15/24 09:00 05/15/24 09:00 05/14/24 21:51 05/15/24 08:00 Routine HEENT Exam Head: Present normocephalic and atraumatic Eye: Present EOMI and PERRL ENT: Present mucous membranes moist Routine Neck Exam Neck: Present supple and trachea midline Routine Respiratory Exam Respiratory: Present chest non-tender, lungs clear, normal breath sounds and no resp distress Routine Cardiovascular Exam Cardiovascular: Present RRR Routine Abdominal Exam Abdominal: Present soft and normoactive bowel sounds Routine Extremities Exam Extremities: Present full ROM Routine Skin Exam Skin: Present intact, dry and warm Routine Neurological Exam Neurological: Present alert, oriented X3 and CN II-XII intact Routine Psychiatric Exam Psychiatric: Present normal affect and normal thought process Results Labs 05/15/24 06:17 05/15/24 06:17 Labs: Short CBC 05/14/24 05/15/24 Range/Units 16:54 06:17 WBC 4.2 8.7 D (3.6-11.0) Thou/mm3 Hgb 10.4 L 10.7 L (12.0-16.0) g/dL Hct 31.4 L 32.1 L (36.0-46.0) % Plt Count 181 205 (140-440) Thou/mm3 BMP 05/14/24 05/14/24 05/15/24 16:54 22:47 06:17 Sodium 132 L 133 L 132 L Potassium 5.3 H 4.3 D 4.2 Chloride 98 97 L 101 Carbon Dioxide 30.1 30.6 25.6 BUN 16 17 17 Creatinine 0.8 0.8 0.7 Glucose 94 101 102 Calcium 9.4 9.9 9.1 Cardiac Enzymes 05/14/24 Range/Units 16:54 Troponin I < 0.020 (0.0-0.045) ng/mL Liver Function 05/14/24 05/15/24 Range/Units 16:54 06:17 Total Bilirubin 0.3 0.4 (0.3-1.2) mg/dL AST 29 35 H (0-34) U/L ALT 19 16 (10-49) U/L Alkaline Phosphatase 83 76 (46-116) U/L Albumin 4.3 3.7 D (3.4-4.8) gm/dL Urine 05/14/24 Range/Units 17:37 Urine Color Lt-Yellow (Lt Yel-Yel) Urine Clarity Clear (Clear/Hazy) Urine pH 6.5 (5.0-7.0) Ur Specific [place] 1.032 (1.001-1.035) Urine Protein Negative (Neg - Trace) Urine Glucose (UA) Negative (Negative) ABG Interpretation ABG results: 05/14/24 05/14/24 05/15/24 17:16 18:30 04:15 ABG pH 7.36 7.49 H D 7.45 ABG pCO2 55 H 39 D 42 ABG pO2 70 L 469 H D 94 D ABG HCO3 31 H 30 H 29 H ABG O2 Saturation 94 101 H 98 ABG Base Excess 5 H 6 H 4 H Assessment and Plan Assessment and plan (1) Altered mental status: Status: Acute (2) S/P cardiac pacemaker procedure: Status: Acute (3) Hypertension: Status: Acute Additional Assessment & Plan Additional Plan: agree with current treatment will obtain echo will check pacemaker
--- NOTE | 2024-05-15 13:44 | PC.DIETICIAN ---
Nutrition prescription If EN is indicated, consider: Vital 1.2 at 20 ml/hr via OG tube by pump. Advance 10 ml every 8 hrs to goal rate of 50 ml/hr x 24 hrs. If no IV fluids, water flushes of 25 ml/hr (or per MD).
--- NOTE | 2024-05-15 17:26 | PD.RESPRO ---
Documentation for date of: 05/15/24 Subjective Subjective Interval history: 05/15/2024:Patient was seen and examined by the bedside. Patient is intubated and sedated. Continues to be hemodynamically stable. Admitted overnight, was intubated in the setting of altered mental status and inability to protect airways. MRI scheduled for today, but MRI checklist requires confirmation from the pacemaker company for MRI clearance, MRI was not done today. EEG ordered, pending. In-house neurology consulted. According to the family, patient was going out of the car when she became non-verbal, gaze was fixated, non-moving, family had to help her to get out of the car. In the ED she had a sudden decrease in her menation and she was intubated to protect her airways. They reported that she had been experiencing right arm pain and could have taken some pain meds. Exam Vital Signs Temp Pulse Resp BP Pulse Ox O2 Del Method FiO2 97 F 67 18 96/57 L 99 Mechanical Ventilation 35 05/15/24 08:00 05/15/24 16:00 05/14/24 22:38 05/15/24 16:00 05/15/24 16:00 05/14/24 21:51 05/15/24 16:00 Narrative Exam Gen: Well-developed and well-nourished. Sedated, intubated. Slight reaction to noxious stimuli. HEENT: NCAT, PERRLA, EOMI, MMM, anicteric conjunctivae. CVS: normal S1 and S2. RRR. No M/R/G. Resp: CTA B/L. No rhonchi, rales, crackles or wheezing. Abd: soft, non-tender, non-distended. BS+ in all 4 quadrants. MSK: Good ROM in BUE & BLE. No edema or rash. Neuro: Sedated, intubated. No srong evidence of acute focal neurological findings. Tendon reflexes +, Babinski negative bilaterally. Psych:Impossible to asses at this time. Objective Labs 05/15/24 06:17 05/15/24 06:17 Labs: Laboratory Results - last 24 hr 05/14/24 05/14/24 05/14/24 16:54 17:37 18:30 WBC 4.2 RBC 3.58 L Hgb 10.4 L Hct 31.4 L MCV 88 MCH 29.1 MCHC 33.1 RDW Std Deviation 51.6 H Plt Count 181 Neut % (Auto) 40 Lymph % (Auto) 42 [place] % (Auto) 11 Eos % (Auto) 6 Baso % (Auto) 1 Neut # (Auto) 1.7 L Lymph # (Auto) 1.8 [place] # (Auto) 0.4 Eos # (Auto) 0.3 Baso # (Auto) 0.1 Immature Gran # (Auto) 0.01 H Absolute Nucleated RBC 0.00 Immature Gran % 0 Nucleated RBC % 0 PT Cancelled INR Cancelled APTT Cancelled Puncture Site Right Radial ABG pH 7.49 H D ABG pCO2 39 D ABG pO2 469 H D ABG HCO3 30 H ABG O2 Saturation 101 H ABG Base Excess 6 H FiO2 100 Sodium Potassium Chloride Carbon Dioxide Anion Gap BUN Creatinine Estim Creat Clear Calc eGFR BUN/Creatinine Ratio Glucose Calculated Osmolality Calcium Corrected Calcium Phosphorus Magnesium Total Bilirubin AST ALT Alkaline Phosphatase Total Protein Albumin Globulin Albumin/Globulin Ratio Ur Collection Type Clean Catch Urine Color Lt-Yellow Urine Clarity Clear Urine pH 6.5 Ur Specific [place] 1.032 Urine Protein Negative Urine Glucose (UA) Negative Urine Ketones Negative Urine Blood Negative Urine Nitrite Negative Urine Bilirubin Negative Urine Urobilinogen (Auto) Negative Ur Leukocyte Esterase Negative Urine RBC 1 Urine WBC < 1 Ur Squamous Epith Cells 0 Urine Bacteria None Urine Opiates Screen Negative Urine Fentanyl Screen Negative Ur Barbiturates Screen Negative U Amphetamin/Meth Scrn Negative U Benzodiazepines Scrn Negative U Cocaine Metab Screen Negative U Marijuana (THC) Screen Negative HCG (Qual) Negative 05/14/24 05/14/24 05/15/24 18:42 22:47 04:15 WBC RBC Hgb Hct MCV MCH MCHC RDW Std Deviation Plt Count Neut % (Auto) Lymph % (Auto) [place] % (Auto) Eos % (Auto) Baso % (Auto) Neut # (Auto) Lymph # (Auto) [place] # (Auto) Eos # (Auto) Baso # (Auto) Immature Gran # (Auto) Absolute Nucleated RBC Immature Gran % Nucleated RBC % PT 11.5 INR 1.1 APTT 26.1 Puncture Site Right Radial ABG pH 7.45 ABG pCO2 42 ABG pO2 94 D ABG HCO3 29 H ABG O2 Saturation 98 ABG Base Excess 4 H FiO2 40 Sodium 133 L Potassium 4.3 D Chloride 97 L Carbon Dioxide 30.6 Anion Gap 5 L BUN 17 Creatinine 0.8 Estim Creat Clear Calc 46.3 L eGFR > 60 BUN/Creatinine Ratio 21 H Glucose 101 Calculated Osmolality 267 L Calcium 9.9 Corrected Calcium Phosphorus Magnesium Total Bilirubin AST ALT Alkaline Phosphatase Total Protein Albumin Globulin Albumin/Globulin Ratio Ur Collection Type Urine Color Urine Clarity Urine pH Ur Specific [place] Urine Protein Urine Glucose (UA) Urine Ketones Urine Blood Urine Nitrite Urine Bilirubin Urine Urobilinogen (Auto) Ur Leukocyte Esterase Urine RBC Urine WBC Ur Squamous Epith Cells Urine Bacteria Urine Opiates Screen Urine Fentanyl Screen Ur Barbiturates Screen U Amphetamin/Meth Scrn U Benzodiazepines Scrn U Cocaine Metab Screen U Marijuana (THC) Screen HCG (Qual) 05/15/24 06:17 WBC 8.7 D RBC 3.64 L Hgb 10.7 L Hct 32.1 L MCV 88 MCH 29.4 MCHC 33.3 RDW Std Deviation 52.0 H Plt Count 205 Neut % (Auto) 71 Lymph % (Auto) 17 [place] % (Auto) 9 Eos % (Auto) 2 Baso % (Auto) 1 Neut # (Auto) 6.2 Lymph # (Auto) 1.5 [place] # (Auto) 0.8 Eos # (Auto) 0.1 Baso # (Auto) 0.0 Immature Gran # (Auto) 0.05 H Absolute Nucleated RBC 0.00 Immature Gran % 1 H Nucleated RBC % 0 PT INR APTT Puncture Site ABG pH ABG pCO2 ABG pO2 ABG HCO3 ABG O2 Saturation ABG Base Excess FiO2 Sodium 132 L Potassium 4.2 Chloride 101 Carbon Dioxide 25.6 Anion Gap 5 L BUN 17 Creatinine 0.7 Estim Creat Clear Calc 51.3 L eGFR > 60 BUN/Creatinine Ratio 24 H Glucose 102 Calculated Osmolality 266 L Calcium 9.1 Corrected Calcium 9.3 Phosphorus 2.9 Magnesium 1.8 Total Bilirubin 0.4 AST 35 H ALT 16 Alkaline Phosphatase 76 Total Protein 6.3 Albumin 3.7 D Globulin 2.6 Albumin/Globulin Ratio 1.4 Ur Collection Type Urine Color Urine Clarity Urine pH Ur Specific [place] Urine Protein Urine Glucose (UA) Urine Ketones Urine Blood Urine Nitrite Urine Bilirubin Urine Urobilinogen (Auto) Ur Leukocyte Esterase Urine RBC Urine WBC Ur Squamous Epith Cells Urine Bacteria Urine Opiates Screen Urine Fentanyl Screen Ur Barbiturates Screen U Amphetamin/Meth Scrn U Benzodiazepines Scrn U Cocaine Metab Screen U Marijuana (THC) Screen HCG (Qual) ABG Interpretation ABG results: 05/14/24 05/14/24 05/15/24 17:16 18:30 04:15 ABG pH 7.36 7.49 H D 7.45 ABG pCO2 55 H 39 D 42 ABG pO2 70 L 469 H D 94 D ABG HCO3 31 H 30 H 29 H ABG O2 Saturation 94 101 H 98 ABG Base Excess 5 H 6 H 4 H Quality Measures Quality Measures stroke Suspected type of Stroke: Non Acute Last known well (date): 05/14/24 Last known well (time): 16:30 Tenecteplase given: Reason(s) Tenecteplase not given: Stroke severity too mild (non-disabling) not given Rehab services: PT evaluation ordered (patient intubated and sedated) VTE Prophylaxis: pharmaceutical Antithrombotic by day 2:: not indicated (describe) Statin ordered: n/a Anticoagulation ordered for A-fib or flutter (current or hx): not indicated Advance care planning discussed with:: other Assessment & Plan Assessment Current Active Medications: Generic Name Dose Route Start Last Admin Trade Name Freq PRN Reason Stop Dose Admin Acetaminophen 650 mg 05/14/24 20:31 Acetaminophen Supp 650 Mg Supp OH 06/13/24 20:30 Q6HR PRN Fever > 100.4 Heparin Sodium (Porcine) 5,000 unit 05/14/24 22:00 05/15/24 14:42 Heparin Sod Inj 5000 Unit/Ml Vial SC 05/28/24 21:59 5,000 unit Q8HR JOANNA Administration Propofol 1,000 mg in 100 mls @ 2.273 mls/hr 05/14/24 18:05 05/15/24 05:05 Diprivan Ivpb IV 06/13/24 18:04 0 mcg/kg/min .Q24H PRN 0 mls/hr PER PROTOCOL Titration Protocol 5 MCG/KG/MIN Fentanyl Citrate 2,500 mcg in 250 mls @ 2.5 mls/hr 05/14/24 20:39 05/15/24 15:39 Sublimaze Inj 2,500 Mcg/250 Ml Bag IV 05/19/24 20:38 75 mcg/hr .Q24H PRN 7.5 mls/hr PER PROTOCOL Titration Protocol 25 MCG/HR Norepinephrine/Dextrose 8 mg in 250 mls @ 7.102 mls/hr 05/15/24 05:10 Levophed In D5w 8mg/250ml IV 06/14/24 05:09 .Q24H PRN PER PROTOCOL Protocol 0.05 MCG/KG/MIN Ondansetron HCl 4 mg 05/14/24 16:43 Ondansetron Inj 2 Mg/Ml Inj 2 Ml IV 06/13/24 16:42 Q4HR PRN NAUSEA OR VOMITING Plan 88 yo female with PMH of heart failure, unspecified arrythmia s/p pacemaker implantation, stroke, hypertension, who was brought in by ambulance due to AMS. Per family member patient was in her usual state of health, went shopping today and when she arrived home patient fainted when trying to get out of the car so EMS where called, during these episode family members describe she had her eyes open, starring blank, was unresponsive and her jaw was very tight , denied tonic clonic movements or incontinence. Upon EMS arrival patient was talkative oriented, vitals within normal limits, however she suddenly developed slurred speech so she was brought to the ED. Patient's daughter referred she had an appointment on Apr 30 with cardiology to assess pacemaker battery, however patient missed appointment. Patient's daughter refers patient has had arm pain for 1 day for which she could have taken more of her pain medications.ED course: On arrival patient's vitals BP 210/104, HR 60, RR 18, afebrile, saturating adequately on room air. Pertinent labs: No leukocytosis, sodium 132, potassium 5.3, UA unremarkable, U tox unremarkable. Stroke alert was called, teleneurology was consulted who referred patient was not a thrombolytic candidate as there where no focal deficits on examination suggestive of stroke. Upon teleneuro initial evaluation she was responsive, talkative and was able to follow commands with NIHSS. She subsequently became unresponsive, and was intubated for airway protection. During episode patient's vitals remained within normal limits. BRATTICE BUILDER #Acute encephalopathy According to the family, patient has a history of repeat previous CVA. DDX: Stroke vs Seizure vs Polypharmacy vs cardiac syncope (less likely heart rate has remained within normal parameters on telemetry) -Head CTA: No large vessel occlusion, no hemorrhage, no midline shift -Follow-up MRI -Consult neurology, appreciate recommendations -Consult cardiology, appreciate recommendations - EEG pending CVS #History of heart failure, hypertension and unspecified arrhythmia SP pacemaker implantation in 2013 -Patient missed appointment for pacemaker battery check up 2 weeks ago -Since arrival to the ED patient's heart rate within normal limits on telemetry -On arrival patient was hypertensive, now blood pressure within normal limits Respiratory -SP intubation for airway protection due to GCS less than 8 -ABG postintubation within normal limits Renal -Stable GI -Stable Infectious -Stable -Follow-up blood cultures Heme-onc -Stable Disposition: Patient admitted to ICU following intubation for airway protection due to acute encephalopathy Diet and fluids: Tube feeds DVT prophylaxis: Heparin GI prophylaxis: None CODE STATUS: Full code Alvarado: In place Lines: Peripheral Plan of care discussed with attending Dr. Gamino. Leticia Gonzalez MD, PGY 1. Attending Provider Attestation/Addendum Patient seen and examined with the above resident, Leticia Gonzalez MD. I agree with the findings, assessment, and plan of care as documented except for any differences below. Patient admitted overnight with possible stroke versus seizure. History of multiple prior strokes and cardiac dysrhythmia for which a PM was placed. None noted since admission including with her loss of consciousness in ED prior to intubation. Sedation holiday done and able to move SHAKEEL/LLE but no movement spontaneously of the right side. She is able to trigger vent and tolerated a PS trial but not awake enough for extubation even many hours afterwards. Patient pending MRI, confirmed device/ leads are compatible. Awaiting availability of the MRI team/ machine. Patient afebrile with no signs of BRATTICE BUILDER infection otherwise. Sudden onset and with prior history, ischemic event most likely but teleneurology suggested potential for seizures as well. Will await input form our bedside neurologist for role of EEG as well. Patient can be restated on low dose sedation as needed for comfort. Family updated at bedside on plan of care. Pastoral care also provided at their request. Total critical care time: I personally spent 40 minutes for review of physiologic parameters, directing plan of care throughout the day, and counseling patient's family at bedside. This is exclusive of time spent teaching housestaff or performing any separate billable procedures. Patient continues to require critical care services for acute encephalopathy with possible ischemic CVA and acute hypoxic respiratory failure on mechanical ventilation. She remains at high risk for mortality or increased morbidity.
--- NOTE | 2024-05-15 23:11 | PD.NEUROCONS ---
History of Present Illness Data of Consult Requesting Physician: Raoul Gamino MD Primary Care Provider: Physician No Primary/Family Consult Narrative History of present illness: Mrs. Llamas is a 88-year-old female with heart failure, arrhythmia status post pacemaker implantation, old stroke, hypertension was brought in by ambulance with altered mental status. According to the family, patient went shopping yesterday and when she reached home, she reportedly fainted when she was trying to get out of the car. Then paramedics were called. Family reported her eyes were open with a blank stare but was unresponsive with tight jaw but without tonic-clonic convulsions or bladder /bowel incontinence or tongue laceration. When EMS arrived, patient was oriented had normal vital signs and was communicative. As she developed acute onset of slurred speech, she was brought to the ER. She was supposed to see cardiology to assess the battery status of pacemaker on April 30 but she missed the appointment. She was complaining of arm pain for 1 day for which she could have taken pain medications but not sure. Workup in the ER: vitals BP 210/104, HR 60, RR 18, afebrile, saturating adequately on room air. Labs: CBC: Within normal range, chemistry profile: Sodium 132, potassium 5.3, UA unremarkable, U tox unremarkable. Stroke alert was called, teleneurology was consulted. Determined that she is not a candidate for tPA as there where no focal deficit on examination suggestive of stroke. She subsequently became unresponsive, and was intubated for airway protection, her vital signs remained stable. Subsequently she got transferred to ICU for further management. In-house neurology was consulted. Patient stayed intubated and on mechanical ventilatory support, fentanyl No history of seizures reported in the past, no seizures after admission. cc:: cc: Raoul Gamino MD Review of Systems Review of Systems ROS Unobtainable: unobtainable due to mental status Past Medical History Past Medical History CARDIAC: Positive Congestive Heart Failure and Hypertension RESPIRATORY: Negative Chronic Obstructive Pulmonary Disease (COPD) GENITOURINARY: Negative Renal Disease ENDOCRINE: Negative Diabetes Mellitus Type 1 or Diabetes Mellitus Type 2 Social History SMOKING STATUS: Never smoker Meds Home Medications and Allergies Allergies Allergy/AdvReac Type Severity Reaction Status Date / Time NKA* Allergy Uncoded 12/20/22 14:11 Exam - Neurology Vital Signs Temp Pulse Resp BP Pulse Ox O2 Del Method FiO2 97.2 F 95 18 103/54 L 98 Mechanical Ventilation 35 05/15/24 19:30 05/15/24 22:01 05/14/24 22:38 05/15/24 22:01 05/15/24 22:01 05/14/24 21:51 05/15/24 22:00 Narrative Exam GENERAL APPEARANCE: Well developed, well-nourished female, intubated and on mechanical ventilatory support on fentanyl HEENT: Normocephalic, atraumatic, Pupils: Equal reacting to light. NECK: Supple, no JVD or bruits. CARDIOVASULAR: Heart: S1, S2 heard, regular without S3-S4 or murmur no rubs or gallops. LUNGS/CHEST: Clear to auscultation bilaterally. No rails, rhonchi, or wheezing. Normal inspection. ABDOMEN: Soft, nontender, with normal bowel sounds. No pulsatile masses. No rebound, rigidity, or guarding. Normal inspection and palpation. EXTREMITIES: Normal inspection and palpation. No edema, clubbing or cyanosis. SKIN: Warm and dry without rashes. Normal inspection. MUSCULOSKELETAL: No cervical, thoracic, lumbar or midline bony tenderness. Normal inspection. NEURO: Comatose, responding to painful stimulation inconsistently involving the left lower extremity. Brainstem function: Intact. Rest of the exam limited. No signs of meningeal irritation noted. PSYCHIATRIC: Limited Results Labs 05/15/24 06:17 05/15/24 06:17 Labs: Short CBC 05/15/24 Range/Units 06:17 WBC 8.7 D (3.6-11.0) Thou/mm3 Hgb 10.7 L (12.0-16.0) g/dL Hct 32.1 L (36.0-46.0) % Plt Count 205 (140-440) Thou/mm3 BMP 05/14/24 05/15/24 22:47 06:17 Sodium 133 L 132 L Potassium 4.3 D 4.2 Chloride 97 L 101 Carbon Dioxide 30.6 25.6 BUN 17 17 Creatinine 0.8 0.7 Glucose 101 102 Calcium 9.9 9.1 Liver Function 05/15/24 Range/Units 06:17 Total Bilirubin 0.4 (0.3-1.2) mg/dL AST 35 H (0-34) U/L ALT 16 (10-49) U/L Alkaline Phosphatase 76 (46-116) U/L Albumin 3.7 D (3.4-4.8) gm/dL ABG Interpretation ABG results: 05/14/24 05/14/24 05/15/24 17:16 18:30 04:15 ABG pH 7.36 7.49 H D 7.45 ABG pCO2 55 H 39 D 42 ABG pO2 70 L 469 H D 94 D ABG HCO3 31 H 30 H 29 H ABG O2 Saturation 94 101 H 98 ABG Base Excess 5 H 6 H 4 H Assessment & Plan Assessment and plan (1) Altered mental status: Status: Acute Assessment and plan: So far the workup is negative including labs and CT head Ordered EEG to evaluate further Consider doing MRI brain if mental status does not improve and when stable (2) S/P cardiac pacemaker procedure: Status: Acute Assessment and plan: Will find out if pacemaker is MRI compatible (3) Hypertension: Status: Chronic Assessment and plan: But currently hypotensive, will hold off on antihypertensives. Consider pressor agents as needed.
[2024-05-15] MEDS: Norepinephrine/D5W 8mg/250ml 8 MG/250 ML BAG 7.102 MG IV (23:26)
--- NOTE | 2024-05-15 23:55 | PC.NURSE ---
Pt rhythm converted to A. Fib with low BP noted. MD MAYO called to the bedside. Per MD MAYO now present at the bedside, titrate Levophed as needed to keep MAP >65, and to notify MD if HR becomes >120 and sustains that rate. Plan of care on-going.
[2024-05-16] VITALS (78 sets, daily range): BP systolic 75–153; BP diastolic 48–112; PULSE 61–102; RESP 10–29; TEMP 36.2–37.2; O2SAT 95–99; BMI 28.0
[2024-05-16] MEDS: Magnesium Sulfate 2 GM Ivpb 2 GM/50 ML BAG IV (00:15)
--- NOTE | 2024-05-16 03:49 | RESP.EEG ---
EEG captured and ready to be read
[2024-05-16 04:35] LABS: HCO3 28 mEq/L (20-26); Inspired Oxygen, FIO2 35 %; PCO2 42 mmHg (32.0-48.0); PO2 63 mmHg (83-108); pH, Arterial 7.43 (7.35-7.45)
[2024-05-16 04:54] LABS: Allen Test Performed/OK; Base Excess 4 (-3-3); O2 Saturation 98 % (91-98); Puncture Site Right Radial
[2024-05-16] MEDS: HEPARIN SOD INJ 5000 UNIT/ML VIAL SC ×3 (05:25→21:08)
[2024-05-16 06:55] LABS: Basophils # (Auto) 0.1 Thou/mm3 (0.0-0.2); Basophils % (Auto) 1 % (0-2.5); Eosinophils % (Auto) 0 % (0-10); Hematocrit 33.1 % (36.0-46.0); Hemoglobin 11.1 g/dL (12.0-16.0); Immature Granulocytes % (Auto) 1 % (0-0); Immature Granulocytes Auto 0.05 Thou/mm3 (0.00-0.00); Lymphocytes # (Auto) 1.7 Thou/mm3 (1.0-4.8); Lymphocytes % (Auto) 17 % (10-50); Mean Corpuscular HGB Conc 33.5 g/dl (31.0-37.0); Mean Corpuscular Hemoglobin 28.8 pg (25.0-35.0); Mean Corpuscular Volume 86 fL (80-100); Monocytes # (Auto) 1.2 Thou/mm3 (0.0-0.8); Monocytes % (Auto) 11 % (0-12); Neutrophils # (Auto) 7.3 Thou/mm3 (1.8-7.7); Neutrophils % (Auto) 71 % (37-80); Nucleated Red Blood Cell % 0 /100 WBC (0); Platelet Count 211 Thou/mm3 (140-440); RDW Standard Deviation 50.9 fL (36.4-46.3); Red Blood Count 3.85 Miln/mm3 (4.00-5.20); White Blood Count 10.3 Thou/mm3 (3.6-11.0)
[2024-05-16 06:56] LABS: Alanine Aminotransferase 21 U/L (10-49); Albumin, Serum 3.5 gm/dL (3.4-4.8); Albumin/Globulin Ratio 1.3 (1.2-2.2); Alkaline Phosphatase 78 U/L (46-116); Anion Gap 8 (7-16); Aspartate Amino Transferase 67 U/L (0-34); BUN/Creatinine Ratio 25 Ratio (12-20); Bilirubin,Total 0.7 mg/dL (0.3-1.2); Blood Urea Nitrogen 20 mg/dL (9-23); Calcium (Corrected) 9.4 mg/dL (8.5-10.1); Carbon Dioxide 25.8 mMol/L (20.0-31.0); Chloride 99 mMol/L (98-107); Creatinine (Component) 0.8 mg/dL (0.6-1.3); Estimated Creatinine Clearance 45.1 mL/min (>60); Globulin 2.8 gm/dL (2.3-3.5); Glucose 145 mg/dL (74-106); Magnesium 2.4 mg/dL (1.6-2.6); Osmolality,Calculated 271 (275-295); Phosphorous 3.2 mg/dL (2.4-5.1); Potassium 3.9 mMol/L (3.4-5.1); Sodium 133 mMol/L (136-145); Thyroid Stimulating Hormone 3.42 uIU/mL (0.55-4.78); Total Protein 6.3 gm/dL (5.7-8.2); eGFR > 60 See Note
--- NOTE | 2024-05-16 10:12 | CHAP ---
Patient was visited by the Spiritual Care Volunteer who prayed for them. (Volunteer was in the hospital from 09:24-10:12).
--- NOTE | 2024-05-16 10:32 | PD.IMPROG ---
Documentation for date of: 05/16/24 Subjective Subjective Interval history: pt appears stable BP- 131/78 paced rhythm Exam Vital Signs Temp Pulse Resp BP Pulse Ox O2 Del Method FiO2 97.1 F 72 18 131/78 H 98 Mechanical Ventilation 35 05/16/24 04:00 05/16/24 10:22 05/14/24 22:38 05/16/24 10:22 05/16/24 10:22 05/14/24 21:51 05/16/24 10:22 Routine HEENT Exam Head: Present normocephalic and atraumatic Eye: Present EOMI and PERRL ENT: Present mucous membranes moist Routine Neck Exam Neck: Present supple and trachea midline Routine Respiratory Exam Respiratory: Present chest non-tender, lungs clear, normal breath sounds and no resp distress Routine Cardiovascular Exam Cardiovascular: Present RRR Routine Abdominal Exam Abdominal: Present soft and normoactive bowel sounds Routine Extremities Exam Extremities: Present full ROM Routine Skin Exam Skin: Present intact, dry and warm Routine Neurological Exam Neurological: Present alert, oriented X3 and CN II-XII intact Routine Psychiatric Exam Psychiatric: Present normal affect and normal thought process Objective Labs 05/16/24 05:05 05/16/24 05:05 Labs: Laboratory Results - last 24 hr 05/16/24 05/16/24 04:25 05:05 WBC 10.3 RBC 3.85 L Hgb 11.1 L Hct 33.1 L MCV 86 MCH 28.8 MCHC 33.5 RDW Std Deviation 50.9 H Plt Count 211 Neut % (Auto) 71 Lymph % (Auto) 17 [place] % (Auto) 11 Eos % (Auto) 0 Baso % (Auto) 1 Neut # (Auto) 7.3 Lymph # (Auto) 1.7 [place] # (Auto) 1.2 H Eos # (Auto) 0.0 Baso # (Auto) 0.1 Immature Gran # (Auto) 0.05 H Absolute Nucleated RBC 0.00 Immature Gran % 1 H Nucleated RBC % 0 Puncture Site Right Radial ABG pH 7.43 ABG pCO2 42 ABG pO2 63 L D ABG HCO3 28 H ABG O2 Saturation 98 ABG Base Excess 4 H FiO2 35 Sodium 133 L Potassium 3.9 Chloride 99 Carbon Dioxide 25.8 Anion Gap 8 BUN 20 Creatinine 0.8 Estim Creat Clear Calc 45.1 L eGFR > 60 BUN/Creatinine Ratio 25 H Glucose 145 H Calculated Osmolality 271 L Calcium 9.0 Corrected Calcium 9.4 Phosphorus 3.2 Magnesium 2.4 Total Bilirubin 0.7 AST 67 H ALT 21 Alkaline Phosphatase 78 Total Protein 6.3 Albumin 3.5 Globulin 2.8 Albumin/Globulin Ratio 1.3 TSH 3.42 ABG Interpretation ABG results: 05/14/24 05/14/24 05/15/24 17:16 18:30 04:15 ABG pH 7.36 7.49 H D 7.45 ABG pCO2 55 H 39 D 42 ABG pO2 70 L 469 H D 94 D ABG HCO3 31 H 30 H 29 H ABG O2 Saturation 94 101 H 98 ABG Base Excess 5 H 6 H 4 H 05/16/24 04:25 ABG pH 7.43 ABG pCO2 42 ABG pO2 63 L D ABG HCO3 28 H ABG O2 Saturation 98 ABG Base Excess 4 H Assessment & Plan A&P Narrative recommend echo Time Spent With Patient Time: Total time spent is greater than 50% in coordination of care (as documented) at patient's floor/unit and/or counseling patient:
--- NOTE | 2024-05-16 10:33 | ECHO_ITS ---
Transthoracic Echo Report Ht (in): 62 Wt (lb): 158 Exam Location: Echo Lab Status: Inpatient [place] Developer: Connie Troncoso Indications: Procedure Performed: BP: 134 / 115 HR: Rhythm: Sinus Technical Quality: Technically difficult study MEASUREMENTS (Male / Female) Normal Values 2D ECHO LVOT Diameter 1.7 cm Aortic Root Diameter 2.5 cm LA Systolic Diameter LX 3.6 cm 3.0 - 4.0 / 2.7 - 3.8 cm LA Volume Index 28.2 cm?/m? 16 - 28 cm?/m? M-MODE AV Cusp Separation MM 1.7 cm DOPPLER AV Peak Velocity 79.4 cm/s AV Peak Gradient 2.5 mmHg AV Mean Gradient 1.0 mmHg AV Velocity Time Integral 17.5 cm AI Peak Velocity 151.2 cm/s AI Peak Gradient 9.1 mmHg AI Pressure Half Time 878.0 ms LVOT Peak Velocity 79.1 cm/s LVOT Peak Gradient 2.5 mmHg LVOT Velocity Time Integral 17.6 cm AV Area Cont Eq vti 2.3 cm? AV Area Cont Eq pk 2.3 cm? MV Area PHT 3.7 cm? MR Peak Velocity 203.5 cm/s MR Peak Gradient 16.6 mmHg Mitral E Point Velocity 45.6 cm/s Mitral A Point Velocity 83.4 cm/s Mitral E to A Ratio 0.5 TR Peak Velocity 331.0 cm/s TR Peak Gradient 43.8 mmHg FINDINGS Left Ventricle Normal left ventricular size, wall thickness.global left ventricular systolic function is moderately decreased. The ejection fraction is visually estimated at 30-35 %. There is global left ventricular hypokinesis . Right Ventricle The right ventricle is normal in size.the right ventricular systolic function is moderately decrease d. The estimated right ventricular systolic pressure, 49 mmHg. RAP 5 mmHg. Left Atrium The left atrium is normal by two-dimensional, color flow and Doppler imaging with no structural abnormalities, no thrombus formation present. Right Atrium The right atrium is normal by two-dimensional imaging, color flow and Doppler imaging with no struct ural abnormalities, no thrombus formation present. Atrial Septum The interatrial septum appears normal with no evidence of a shunt. Aorta The aorta is normal by two-dimensional, color flow and Doppler interrogation. Mitral Valve The mitral valve is normal by two-dimensional, color flow and Doppler interrogation. There is no sig nificant mitral valve regurgitation, stenosis or prolapse. Aortic Valve Mild aortic valve regurgitation. Tricuspid Valve There is moderate tricuspid regurgitation. Pulmonic Valve The pulmonic valve is not well visualized. There is no significant pulmonic valve regurgitation. Vessels The pulmonary artery appears normal. The inferior vena cava pulmonary and hepatic veins appear sonia l. Pericardium The pericardium is normal by two-dimensional imaging. There is no significant pericardial effusion. CONCLUSIONS Indication: Normal left ventricular size, wall thickness. Global LV systolic function is moderately decreased. Estimated EF 30-35 %. There is global LV hypokinesis. RV is normal in size. RV systolic function is moderately decreased. RVSP, 49 mmHg. RAP 5 mmHg. Mild AI. Moderate TR. Taz Soni (Electronically Signed) Final Date: 03 June 2024 11:44
[2024-05-16] MEDS: SODIUM CHLORIDE 0.9% 500 ML 500 ML 250 ML IV (12:02)
--- NOTE | 2024-05-16 12:04 | ESPR_ITS ---
<Statement entered by Qian Rodriguez MD - 05/17/24 07:57> TOTAL TIME: 45MINUTES ON DIRECT MEDICAL CARE, MANAGEMENT - COORDINATION AND COUNSELING > 50% OF TOTAL TIME I saw and evaluated the patient. I reviewed the resident?s note and agree with findings and plan as documented in the resident?s note. not moving right side sedation stopped tracking but not following commands imaging reviewed MRI still pending if unable to perform MRI tomorrow, will repeat head CT bolus IVF and increase TFs given low UO Documentation for date of: 05/16/24 Subjective Subjective Interval history: 05/15/2024:Patient was seen and examined by the bedside. Patient is intubated and sedated. Continues to be hemodynamically stable. Admitted overnight, was intubated in the setting of altered mental status and inability to protect airways. MRI scheduled for today, but MRI checklist requires confirmation from the pacemaker company for MRI clearance, MRI was not done today. EEG ordered, pending. In-house neurology consulted. According to the family, patient was going out of the car when she became non- verbal, gaze was fixated, non-moving, family had to help her to get out of the car. In the ED she had a sudden decrease in her menation and she was intubated to protect her airways. They reported that she had been experiencing right arm pain and could have taken some pain meds. 05/16: Patient is seen and examined at bedside. Patient is intubated since 05/14/2024 and sedated. Patient's vital signs are stable and CBC and CMP has no significant changes. ABG findings are improving. Later in the afternoon patient is seen at bedside and patient is more awake and less sedated, patient seem mildly agitated pulling at the intubation tube. With family at bedside patient is interacting and responding to verbal commands. Goal is to wean off sedation as there are plans for extubation after MRI. MRI is still pending due to confirmation from pacemaker company for compatibility. Exam Vital Signs Temp Pulse Resp BP Pulse Ox O2 Del Method FiO2 98.6 F 72 18 129/65 98 Mechanical Ventilation 35 05/16/24 08:00 05/16/24 10:30 05/14/24 22:38 05/16/24 10:30 05/16/24 10:30 05/16/24 10:00 05/16/24 10:22 Narrative Exam GENERAL: sedated and intubated, Pt. responds to verbal commands, and tactile stimuli NEURO: sedated, hearing is intact, is able to move all 4 extremities HEENT: Atraumatic, Normocephalic. mucous membranes moist. Eyes open, symmetrical, & clear HEART: Normal Heart Sounds LUNGS: Clear to auscultation ABDOMEN: soft, non-distended, non-tender, bowel sounds heard, no guarding or rebound tenderness SKIN: No Rash or ecchymoses EXTREMITIES: No edema, tenderness, able to move all 4 extremities, pedal pulses palpated Objective Labs 05/16/24 05:05 05/16/24 05:05 Labs: Laboratory Results - last 24 hr 05/16/24 05/16/24 04:25 05:05 WBC 10.3 RBC 3.85 L Hgb 11.1 L Hct 33.1 L MCV 86 MCH 28.8 MCHC 33.5 RDW Std Deviation 50.9 H Plt Count 211 Neut % (Auto) 71 Lymph % (Auto) 17 [place] % (Auto) 11 Eos % (Auto) 0 Baso % (Auto) 1 Neut # (Auto) 7.3 Lymph # (Auto) 1.7 [place] # (Auto) 1.2 H Eos # (Auto) 0.0 Baso # (Auto) 0.1 Immature Gran # (Auto) 0.05 H Absolute Nucleated RBC 0.00 Immature Gran % 1 H Nucleated RBC % 0 Puncture Site Right Radial ABG pH 7.43 ABG pCO2 42 ABG pO2 63 L D ABG HCO3 28 H ABG O2 Saturation 98 ABG Base Excess 4 H FiO2 35 Sodium 133 L Potassium 3.9 Chloride 99 Carbon Dioxide 25.8 Anion Gap 8 BUN 20 Creatinine 0.8 Estim Creat Clear Calc 45.1 L eGFR > 60 BUN/Creatinine Ratio 25 H Glucose 145 H Calculated Osmolality 271 L Calcium 9.0 Corrected Calcium 9.4 Phosphorus 3.2 Magnesium 2.4 Total Bilirubin 0.7 AST 67 H ALT 21 Alkaline Phosphatase 78 Total Protein 6.3 Albumin 3.5 Globulin 2.8 Albumin/Globulin Ratio 1.3 TSH 3.42 ABG Interpretation ABG results: 05/14/24 05/14/24 05/15/24 17:16 18:30 04:15 ABG pH 7.36 7.49 H D 7.45 ABG pCO2 55 H 39 D 42 ABG pO2 70 L 469 H D 94 D ABG HCO3 31 H 30 H 29 H ABG O2 Saturation 94 101 H 98 ABG Base Excess 5 H 6 H 4 H 05/16/24 04:25 ABG pH 7.43 ABG pCO2 42 ABG pO2 63 L D ABG HCO3 28 H ABG O2 Saturation 98 ABG Base Excess 4 H Quality Measures Quality Measures stroke Suspected type of Stroke: Non Acute Last known well (date): 05/14/24 Last known well (time): 16:30 Tenecteplase given: Reason(s) Tenecteplase not given: Stroke severity too mild (non-disabling) not given Rehab services: PT evaluation ordered and Speech Language Pathology eval ordered VTE Prophylaxis: mechanical Antithrombotic by day 2:: contraindicated (describe) Statin ordered: not ordered Anticoagulation ordered for A-fib or flutter (current or hx): contraindicated Advance care planning discussed with:: child Assessment & Plan Assessment Current Active Medications: Generic Name Dose Route Start Last Admin Trade Name Freq PRN Reason Stop Dose Admin Acetaminophen 650 mg 05/14/24 20:31 Acetaminophen Supp 650 Mg Supp FL 06/13/24 20:30 Q6HR PRN Fever > 100.4 Heparin Sodium (Porcine) 5,000 unit 05/14/24 22:00 05/16/24 05:25 Heparin Sod Inj 5000 Unit/Ml Vial SC 05/28/24 21:59 5,000 unit Q8HR JOANNA Administration Fentanyl Citrate 2,500 mcg in 250 mls @ 2.5 mls/hr 05/14/24 20:39 05/16/24 07:43 Sublimaze Inj 2,500 Mcg/250 Ml Bag IV 05/19/24 20:38 0 mcg/hr .Q24H PRN 0 mls/hr PER PROTOCOL Titration Protocol 25 MCG/HR Norepinephrine/Dextrose 8 mg in 250 mls @ 7.102 mls/hr 05/15/24 05:10 05/16/24 11:40 Levophed In D5w 8mg/250ml IV 06/14/24 05:09 0 mcg/kg/min .Q24H PRN 0 mls/hr PER PROTOCOL Titration Protocol 0.05 MCG/KG/MIN Sodium Chloride 500 mls @ 250 mls/hr 05/16/24 11:29 05/16/24 12:02 Ns IV 05/16/24 13:28 250 mls/hr .Q2H ONE Administration Ondansetron HCl 4 mg 05/14/24 16:43 Ondansetron Inj 2 Mg/Ml Inj 2 Ml IV 06/13/24 16:42 Q4HR PRN NAUSEA OR VOMITING Plan Mr. Llamas is a 88 yo female with PMH of heart failure, unspecified arrythmia s/p pacemaker implantation, stroke, hypertension, who was brought in by ambulance due to AMS. Per family member patient was in her usual state of health, went shopping today and when she arrived home patient fainted when trying to get out of the car so EMS where called, during these episode family members describe she had her eyes open, starring blank, was unresponsive and her jaw was very tight , denied tonic clonic movements or incontinence. Upon EMS arrival patient was talkative oriented, vitals within normal limits, however she suddenly developed slurred speech so she was brought to the ED. Patient's daughter referred she had an appointment on Apr 30 with cardiology to assess pacemaker battery, however patient missed appointment. Patient's daughter refers patient has had arm pain for 1 day for which she could have taken more of her pain medications.ED course: On arrival patient's vitals BP 210/104, HR 60, RR 18, afebrile, saturating adequately on room air. Pertinent labs: No leukocytosis, sodium 132, potassium 5.3, UA unremarkable, U tox unremarkable. Stroke alert was called, teleneurology was consulted who referred patient was not a thrombolytic candidate as there where no focal deficits on examination suggestive of stroke. Upon teleneuro initial evaluation she was responsive, talkative and was able to follow commands with NIHSS. She subsequently became unresponsive, and was intubated for airway protection. During episode patient's vitals remained within normal limits. MARKETING DESIGNER #Acute encephalopathy According to the family, patient has a history of repeat previous CVA. DDX: Stroke vs Seizure vs Polypharmacy vs cardiac syncope (less likely heart rate has remained within normal parameters on telemetry) -Head CTA: No large vessel occlusion, no hemorrhage, no midline shift -MRI pending due to pacemaker compatibility confirmation -Consult neurology, appreciate recommendations -Consult cardiology, appreciate recommendations -EEG pending -avoid sedation as plans for extubation after MRI CVS #History of heart failure, hypertension and unspecified arrhythmia SP pacemaker implantation in 2012 -Patient missed appointment for pacemaker battery check up 2 weeks ago -Since arrival to the ED patient's heart rate within normal limits on telemetry -On arrival patient was hypertensive, now blood pressure within normal limits -echo pending Respiratory -S/P intubation for airway protection due to GCS less than 8 -ABG postintubation within normal limits Renal -no active disease GI -no active disease Infectious -no active disease -blood cultures no growth in 2/2 in 24 hours -Negative for MRSA -ET sputum gram stain shows- GPR and GPC -ET sputum culture pending Heme-onc -no active disease Disposition: Patient admitted to ICU following intubation for airway protection due to acute encephalopathy Diet and fluids: Tube feeds DVT prophylaxis: Heparin GI prophylaxis: None CODE STATUS: Full code [place]: In place Lines: Peripheral Assessment and plan discussed with my attending Dr. Michael Palafox (PGY-1)- Internal medicine resident
[2024-05-16] MEDS: PANTOPRAZOLE INJ 40 MG VIAL IV (14:52)
[2024-05-17] VITALS (37 sets, daily range): BP systolic 98–150; BP diastolic 55–115; PULSE 68–130; RESP 16–30; TEMP 36.3–37.7; O2SAT 91–100; BMI 27.9
[2024-05-17] MEDS: ONDANSETRON INJ 2 MG/ML INJ 2 ML 4 MG IV (00:01)
[2024-05-17 05:04] LABS: Base Excess 3 (-3-3); HCO3 27 mEq/L (20-26); Inspired Oxygen, FIO2 35 %; O2 Saturation 100 % (91-98); PCO2 36 mmHg (32.0-48.0); PO2 111 mmHg (83-108); pH, Arterial 7.48 (7.35-7.45)
[2024-05-17 05:07] LABS: Allen Test Performed/OK; Puncture Site Right Radial
[2024-05-17] MEDS: HEPARIN SOD INJ 5000 UNIT/ML VIAL SC ×3 (05:52→21:19)
[2024-05-17 05:53] LABS: Basophils % (Auto) 0 % (0-2.5); Eosinophils % (Auto) 0 % (0-10); Hematocrit 30.6 % (36.0-46.0); Hemoglobin 10.2 g/dL (12.0-16.0); Immature Granulocytes % (Auto) 0 % (0-0); Immature Granulocytes Auto 0.04 Thou/mm3 (0.00-0.00); Lymphocytes # (Auto) 1.1 Thou/mm3 (1.0-4.8); Lymphocytes % (Auto) 11 % (10-50); Mean Corpuscular HGB Conc 33.3 g/dl (31.0-37.0); Mean Corpuscular Volume 87 fL (80-100); Monocytes # (Auto) 1.1 Thou/mm3 (0.0-0.8); Monocytes % (Auto) 10 % (0-12); Neutrophils # (Auto) 8.2 Thou/mm3 (1.8-7.7); Neutrophils % (Auto) 78 % (37-80); Nucleated Red Blood Cell % 0 /100 WBC (0); Platelet Count 166 Thou/mm3 (140-440); RDW Standard Deviation 50.4 fL (36.4-46.3); Red Blood Count 3.52 Miln/mm3 (4.00-5.20); White Blood Count 10.5 Thou/mm3 (3.6-11.0)
[2024-05-17 06:30] LABS: Alanine Aminotransferase 17 U/L (10-49); Albumin, Serum 3.6 gm/dL (3.4-4.8); Albumin/Globulin Ratio 1.3 (1.2-2.2); Alkaline Phosphatase 78 U/L (46-116); Anion Gap 9 (7-16); Aspartate Amino Transferase 32 U/L (0-34); BUN/Creatinine Ratio 24 Ratio (12-20); Bilirubin,Total 1.2 mg/dL (0.3-1.2); Blood Urea Nitrogen 17 mg/dL (9-23); Calcium 9.1 mg/dL (8.3-10.6); Calcium (Corrected) 9.4 mg/dL (8.5-10.1); Carbon Dioxide 24.2 mMol/L (20.0-31.0); Chloride 100 mMol/L (98-107); Creatinine (Component) 0.7 mg/dL (0.6-1.3); Estimated Creatinine Clearance 51.4 mL/min (>60); Globulin 2.7 gm/dL (2.3-3.5); Glucose 109 mg/dL (74-106); Magnesium 2.1 mg/dL (1.6-2.6); Osmolality,Calculated 268 (275-295); Phosphorous 2.2 mg/dL (2.4-5.1); Potassium 3.8 mMol/L (3.4-5.1); Sodium 133 mMol/L (136-145); Total Protein 6.3 gm/dL (5.7-8.2); eGFR > 60 See Note
--- NOTE | 2024-05-17 07:38 | XR_ITS ---
Examination: CT brain head without contrast. 2-D sagittal coronal reconstructions Date and time of exam:May 17, 2024 0758 hours Comparison May 14, 2024 INDICATIONS: Altered mental status, stroke alert May 14, 2024 onset focal neurologic deficit history left cerebellar hemisphere stroke CTDI: vol (mGy):43.6 DLP: (mGycm):918 Technique: Multiple CT axial sections of the brain have been obtained, 5 mm slice thickness. Contrast has not been administered. 2-D sagittal, coronal reconstructions have been obtained Low dose protocols were performed. One or more of the following dose reduction techniques were used; automated exposure control, adjustment of the mA and/or KV according to patient size, use of iterative reconstruction technique. Findings: The entire study is severely degraded by patient motion Large acute infarct in distribution left middle cerebral artery without gross hemorrhage IMPRESSION: The entire study is severely degraded by patient motion Large acute infarct left middle cerebral artery distribution Suspicious for shift of the frontal horns to the right 3 mm
--- NOTE | 2024-05-17 08:43 | PC.PT ---
PT eval received. Patient is currently on mechanical ventilator. Patient is not a candidate for physical therapy at this time. Will cancel PT eval.
[2024-05-17] MEDS: PANTOPRAZOLE INJ 40 MG VIAL IV (08:44)
--- NOTE | 2024-05-17 09:05 | PCS.ST ---
Order Received. Still intubated.
--- NOTE | 2024-05-17 11:02 | XR_ITS ---
Examination: AP chest single view Technique one AP portable upright chest single view Exam date and time: May 17, 2024 1113 hours Comparison May 14, 2024 INDICATIONS: Hypoxic respiratory failure, patient with history stroke alert this week FINDINGS: Normal heart size Moderate vascular congestion Endotracheal tube tip approximately 3 cm above lucero Transvenous dual-chamber bipolar cardiac leads satisfactory position Orogastric tube projects in the duodenum, tip below the level of the film Atelectasis versus mild pneumonia left base IMPRESSION: Atelectasis versus mild pneumonia left base Consider KUB follow-up to assess position of orogastric tube
[2024-05-17] MEDS: EPINEPHrine RT SOL 0.5 ML NEBU INH (11:48)
[2024-05-17] MEDS: SODIUM CHLORIDE RT SOL 0.9% 3 ML NEBU INH (11:48)
[2024-05-17] MEDS: SODIUM CHLORIDE 3%(Hypertonic) 50 ML in PRE-MIXED 1 BAG 300 ML IV (12:15)
[2024-05-17] MEDS: PRE MIXED IV ×3 (12:31→22:12)
[2024-05-17] MEDS: SODIUM CHLORIDE 3% IV ×3 (12:31→22:12)
[2024-05-17 13:53] LABS: Sodium 132 mMol/L (136-145)
[2024-05-17] MEDS: SODIUM CHLORIDE 1 GM TABLET PO (13:58)
[2024-05-17] MEDS: MORPHINE SULF INJ 10 MG/ML VIAL 2 MG IVP ×2 (13:58→15:54)
--- NOTE | 2024-05-17 14:08 | EVENTNT_ITS ---
<Statement entered by Qian Rodriguez MD - 05/18/24 07:58> I saw and evaluated the patient. I reviewed the resident?s note and agree with findings and plan as documented in the resident?s note. Documentation for date of: 05/17/24-a detailed discussion was held with the patient's daughter at bedside and 2 daughters and son on the phone, and Dr. Rodriguez, Nurse erin regarding the patient's current condition and the extent of large left cerebral ischemic stroke caused by infarct of left middle cerebral artery distribution. Pt's prognosis is discussed and family would like to adhere to pt.'s wishes of not wanting mechanical ventilation as terminal clerk requirement. After careful consideration of patients wishes, the family have made a decision to to convert patients code status from full code to DNR. Pt's family would like to have another goals of care discussion at later time regarding if comfort care would be best choice considering her current prognosis. A follow up meeting be will arranged to discuss the transition. Assessment and plan discussed with my attending Dr. Michael Palafox (PGY-1)- Internal medicine resident
--- NOTE | 2024-05-17 14:20 | PC.NURSE ---
Late entry: @ 1330 MD Rodriguez, MD Palafox, and myself present in the room with patient's daughter (Lakia) at bedside. Conversation with MD Rodriguez and Lakia (bedside), along with Caitlin Hall and Tere (pt's children) via phone. Decision was made to change patients code status from full code to DNR/DNI.
--- NOTE | 2024-05-17 15:11 | PC.SS ---
Update: Patient extubated today. Currently on 4L nasal cannula. Patient failed swallow evaluation. Code status change to DNR/DNI. Family pending decision to transition patient to comfort care.
--- NOTE | 2024-05-17 15:15 | PD.IMPROG ---
Documentation for date of: 05/17/24 Subjective Subjective Interval history: DNR / palliative care being d/w family due to large CVA with poor prognosis Exam Vital Signs Temp Pulse Resp BP Pulse Ox O2 Del Method O2 Flow Rate 99.7 F 89 20 118/76 99 Mechanical Ventilation 4 05/17/24 12:02 05/17/24 15:01 05/17/24 15:01 05/17/24 15:01 05/17/24 15:01 05/17/24 07:00 05/17/24 14:19 FiO2 30 05/17/24 10:24 Routine HEENT Exam Head: Present normocephalic and atraumatic Eye: Present EOMI and PERRL ENT: Present mucous membranes moist Routine Neck Exam Neck: Present supple and trachea midline Routine Respiratory Exam Respiratory: Present chest non-tender, lungs clear, normal breath sounds and no resp distress Routine Cardiovascular Exam Cardiovascular: Present RRR Routine Abdominal Exam Abdominal: Present soft and normoactive bowel sounds Routine Extremities Exam Extremities: Present full ROM Routine Skin Exam Skin: Present intact, dry and warm Routine Neurological Exam Neurological: Present alert, oriented X3 and CN II-XII intact Routine Psychiatric Exam Psychiatric: Present normal affect and normal thought process Objective Labs 05/17/24 05:30 05/17/24 12:50 Labs: Laboratory Results - last 24 hr 05/17/24 05/17/24 05/17/24 04:54 05:30 12:50 WBC 10.5 RBC 3.52 L Hgb 10.2 L Hct 30.6 L MCV 87 MCH 29.0 MCHC 33.3 RDW Std Deviation 50.4 H Plt Count 166 D Neut % (Auto) 78 Lymph % (Auto) 11 [place] % (Auto) 10 Eos % (Auto) 0 Baso % (Auto) 0 Neut # (Auto) 8.2 H Lymph # (Auto) 1.1 [place] # (Auto) 1.1 H Eos # (Auto) 0.0 Baso # (Auto) 0.0 Immature Gran # (Auto) 0.04 H Absolute Nucleated RBC 0.00 Immature Gran % 0 Nucleated RBC % 0 Puncture Site Right Radial ABG pH 7.48 H ABG pCO2 36 ABG pO2 111 H D ABG HCO3 27 H ABG O2 Saturation 100 H ABG Base Excess 3 FiO2 35 Sodium 133 L 132 L Potassium 3.8 Chloride 100 Carbon Dioxide 24.2 Anion Gap 9 BUN 17 Creatinine 0.7 Estim Creat Clear Calc 51.4 L eGFR > 60 BUN/Creatinine Ratio 24 H Glucose 109 H Calculated Osmolality 268 L Calcium 9.1 Corrected Calcium 9.4 Phosphorus 2.2 L Magnesium 2.1 Total Bilirubin 1.2 D AST 32 ALT 17 Alkaline Phosphatase 78 Total Protein 6.3 Albumin 3.6 Globulin 2.7 Albumin/Globulin Ratio 1.3 ABG Interpretation ABG results: 05/14/24 05/14/24 05/15/24 17:16 18:30 04:15 ABG pH 7.36 7.49 H D 7.45 ABG pCO2 55 H 39 D 42 ABG pO2 70 L 469 H D 94 D ABG HCO3 31 H 30 H 29 H ABG O2 Saturation 94 101 H 98 ABG Base Excess 5 H 6 H 4 H 05/16/24 05/17/24 04:25 04:54 ABG pH 7.43 7.48 H ABG pCO2 42 36 ABG pO2 63 L D 111 H D ABG HCO3 28 H 27 H ABG O2 Saturation 98 100 H ABG Base Excess 4 H 3 Assessment & Plan A&P Narrative continue suportive treatemnt Time Spent With Patient Time: Total time spent is greater than 50% in coordination of care (as documented) at patient's floor/unit and/or counseling patient:
[2024-05-17 15:49] LABS: Sodium 134 mMol/L (136-145)
[2024-05-17 17:21] LABS: Sodium 134 mMol/L (136-145)
--- NOTE | 2024-05-17 17:30 | ESPR_ITS ---
<Statement entered by Qian Rodriguez MD - 05/18/24 08:21> TOTAL TIME: 45MINUTES ON DIRECT MEDICAL CARE, MANAGEMENT - COORDINATION AND COUNSELING > 50% OF TOTAL TIME I saw and evaluated the patient. I reviewed the resident?s note and agree with findings and plan as documented in the resident?s note. Patient was seen and examined with family at bedside. Patient's daughter Le says she is the legal medical decision maker and sign paperwork which she do not have access to but reports being kept at the patient's primary physician's office. A message was left to the primary care physician's office to forward the paperwork to the ICU for our review. In the meantime we were able to speak to the patient's remaining children including 2 additional sisters and a brother. We discussed the patient's CT head report revealing a large left MCA territory infarct. I also discussed the case with the neurologist Dr Christensen. The patient's prognosis is suboptimal due to her advanced age of 88 and large territorial stroke leaving her with right-sided hemiplegia. Dr Christensen do not feel any further medical/surgical management was indicated currently. The family understood that her ability to recover would be a slow process and that she would likely require long-term rehab. We also talked about the high risk of requiring reintubation after extubation due to bulbar dysfunction and loss of airway protective mechanisms. We also discussed the likelihood of requiring a PEG tube. The family requested that she be DNR and not be reintubated if she failed extubation. They specifically said that their mother was an independent woman and and was very clear regarding her goals of care and that she did not want to be subjected to long-term medical care or rehab should she suffer a medical disease or complication leaving her incapacitated. They were acceptable to treating her from a palliative standpoint in case she develops respiratory distress and should her condition continue to get worse and she fails supportive care, they were acceptable to him we have ordered morphine as necessary for dyspnea as well as aggressive nasotracheal suctioning to help manage airway secretions. Documentation for date of: 05/17/24 Subjective Subjective Interval history: 05/15/2024:Patient was seen and examined by the bedside. Patient is intubated and sedated. Continues to be hemodynamically stable. Admitted overnight, was intubated in the setting of altered mental status and inability to protect airways. MRI scheduled for today, but MRI checklist requires confirmation from the pacemaker company for MRI clearance, MRI was not done today. EEG ordered, pending. In-house neurology consulted. According to the family, patient was going out of the car when she became non- verbal, gaze was fixated, non-moving, family had to help her to get out of the car. In the ED she had a sudden decrease in her menation and she was intubated to protect her airways. They reported that she had been experiencing right arm pain and could have taken some pain meds. 05/16: Patient is seen and examined at bedside. Patient is intubated since 05/14/2024 and sedated. Patient's vital signs are stable and CBC and CMP has no significant changes. ABG findings are improving. Later in the afternoon patient is seen at bedside and patient is more awake and less sedated, patient seem mildly agitated pulling at the intubation tube. With family at bedside patient is interacting and responding to verbal commands. Goal is to wean off sedation as there are plans for extubation after MRI. MRI is still pending due to confirmation from [employer] for compatibility. 05/17: Patient is seen and examined at bedside. repeat CT scan findings include large acute infarct left middle cerebral artery distribution. Pt is able to move left side arm and lower extremity and is able to look at left side the patient is unable to move right arm or right lower extremity. Patient is responding to painful stimuli on the left side but not on the right. In light of new findings on the CT scan we will defer MRI for now. Discussion regarding CODE STATUS was taken place with patient's family. Patient was changed CODE STATUS from full code to DNR/DNI. Family would like an opportunity for siblings to be able to visit the patient before placing the patient on comfort care. Patient is able to maintain saturation on extubation with increased respiratory rate. Patient was unable to tolerate NG tube feedings as she is unable to swallow and has accumulated increased secretions. Will hold tube feeding for now as patient is at increased risk of aspiration. Discussed new findings with Dr. Christensen and she is following. Exam Vital Signs Temp Pulse Resp BP Pulse Ox O2 Del Method O2 Flow Rate 99.7 F 89 20 118/76 99 Mechanical Ventilation 4 05/17/24 12:02 05/17/24 15:01 05/17/24 15:01 05/17/24 15:01 05/17/24 15:01 05/17/24 07:00 05/17/24 14:19 FiO2 30 05/17/24 10:24 Narrative Exam GENERAL: AOx0, pt. is awake but is unable to follow command NEURO: awake, right side deficit, Pt responds to painful stimuli on left side HEENT: Atraumatic, Normocephalic. mucous membranes moist. Eyes open, symmetrical, & clear HEART: Normal Heart Sounds LUNGS: coarse breath sounds with increased respiratory rate ABDOMEN: soft, non-distended, non-tender, no guarding or rebound tenderness SKIN: No Rash or ecchymoses EXTREMITIES: No edema, Left upper and L. Lower extremity, pedal pulses palpated Objective Labs 05/17/24 05:30 05/17/24 17:00 Labs: Laboratory Results - last 24 hr 05/17/24 05/17/24 05/17/24 04:54 05:30 12:50 WBC 10.5 RBC 3.52 L Hgb 10.2 L Hct 30.6 L MCV 87 MCH 29.0 MCHC 33.3 RDW Std Deviation 50.4 H Plt Count 166 D Neut % (Auto) 78 Lymph % (Auto) 11 [place] % (Auto) 10 Eos % (Auto) 0 Baso % (Auto) 0 Neut # (Auto) 8.2 H Lymph # (Auto) 1.1 [place] # (Auto) 1.1 H Eos # (Auto) 0.0 Baso # (Auto) 0.0 Immature Gran # (Auto) 0.04 H Absolute Nucleated RBC 0.00 Immature Gran % 0 Nucleated RBC % 0 Puncture Site Right Radial ABG pH 7.48 H ABG pCO2 36 ABG pO2 111 H D ABG HCO3 27 H ABG O2 Saturation 100 H ABG Base Excess 3 FiO2 35 Sodium 133 L 132 L Potassium 3.8 Chloride 100 Carbon Dioxide 24.2 Anion Gap 9 BUN 17 Creatinine 0.7 Estim Creat Clear Calc 51.4 L eGFR > 60 BUN/Creatinine Ratio 24 H Glucose 109 H Calculated Osmolality 268 L Calcium 9.1 Corrected Calcium 9.4 Phosphorus 2.2 L Magnesium 2.1 Total Bilirubin 1.2 D AST 32 ALT 17 Alkaline Phosphatase 78 Total Protein 6.3 Albumin 3.6 Globulin 2.7 Albumin/Globulin Ratio 1.3 05/17/24 05/17/24 15:23 17:00 WBC RBC Hgb Hct MCV MCH MCHC RDW Std Deviation Plt Count Neut % (Auto) Lymph % (Auto) [place] % (Auto) Eos % (Auto) Baso % (Auto) Neut # (Auto) Lymph # (Auto) [place] # (Auto) Eos # (Auto) Baso # (Auto) Immature Gran # (Auto) Absolute Nucleated RBC Immature Gran % Nucleated RBC % Puncture Site ABG pH ABG pCO2 ABG pO2 ABG HCO3 ABG O2 Saturation ABG Base Excess FiO2 Sodium 134 L 134 L Potassium Chloride Carbon Dioxide Anion Gap BUN Creatinine Estim Creat Clear Calc eGFR BUN/Creatinine Ratio Glucose Calculated Osmolality Calcium Corrected Calcium Phosphorus Magnesium Total Bilirubin AST ALT Alkaline Phosphatase Total Protein Albumin Globulin Albumin/Globulin Ratio ABG Interpretation ABG results: 05/14/24 05/14/24 05/15/24 17:16 18:30 04:15 ABG pH 7.36 7.49 H D 7.45 ABG pCO2 55 H 39 D 42 ABG pO2 70 L 469 H D 94 D ABG HCO3 31 H 30 H 29 H ABG O2 Saturation 94 101 H 98 ABG Base Excess 5 H 6 H 4 H 05/16/24 05/17/24 04:25 04:54 ABG pH 7.43 7.48 H ABG pCO2 42 36 ABG pO2 63 L D 111 H D ABG HCO3 28 H 27 H ABG O2 Saturation 98 100 H ABG Base Excess 4 H 3 Quality Measures Quality Measures stroke Suspected type of Stroke: Non Acute Last known well (date): 05/14/24 Last known well (time): 16:30 Tenecteplase given: Reason(s) Tenecteplase not given: Stroke severity too mild (non-disabling) not given Rehab services: PT evaluation ordered VTE Prophylaxis: mechanical Antithrombotic by day 2:: not indicated (describe) Statin ordered: not ordered Anticoagulation ordered for A-fib or flutter (current or hx): not indicated Advance care planning discussed with:: child Assessment & Plan Assessment Current Active Medications: Generic Name Dose Route Start Last Admin Trade Name Freq PRN Reason Stop Dose Admin Acetaminophen 650 mg 05/14/24 20:31 Acetaminophen Supp 650 Mg Supp [place] 06/13/24 20:30 Q6HR PRN Fever > 100.4 Heparin Sodium (Porcine) 5,000 unit 05/14/24 22:00 05/17/24 13:58 Heparin Sod Inj 5000 Unit/Ml Vial SC 05/28/24 21:59 5,000 unit Q8HR JOANNA Administration Fentanyl Citrate 2,500 mcg in 250 mls @ 2.5 mls/hr 05/14/24 20:39 05/16/24 07:43 Sublimaze Inj 2,500 Mcg/250 Ml Bag IV 05/19/24 20:38 0 mcg/hr .Q24H PRN 0 mls/hr PER PROTOCOL Titration Protocol 25 MCG/HR Norepinephrine/Dextrose 8 mg in 250 mls @ 7.102 mls/hr 05/15/24 05:10 05/16/24 11:40 Levophed In D5w 8mg/250ml IV 06/14/24 05:09 0 mcg/kg/min .Q24H PRN 0 mls/hr PER PROTOCOL Titration Protocol 0.05 MCG/KG/MIN Sodium Chloride 450 ml/ IV 450 mls @ 10 mls/hr 05/17/24 11:00 05/17/24 12:31 Miscellaneous Supplies IV 05/19/24 07:59 10 mls/hr X1 ONE Administration Labetalol HCl 10 mg 05/16/24 16:36 Labetalol Inj 5 Mg/Ml Vial 20 Ml IVP 06/15/24 16:35 Q2H PRN SBP >220 OR DBP >120 Morphine Sulfate 2 mg 05/17/24 13:42 05/17/24 15:54 Morphine Sulf Inj 10 Mg/Ml Vial IVP 05/22/24 13:41 2 mg Q30M PRN Administration persistent Dyspnea Ondansetron HCl 4 mg 05/14/24 16:43 05/17/24 00:01 Ondansetron Inj 2 Mg/Ml Inj 2 Ml IV 06/13/24 16:42 4 mg Q4HR PRN Administration NAUSEA OR VOMITING Pantoprazole Sodium 40 mg 05/16/24 14:45 05/17/24 08:44 Pantoprazole Inj 40 Mg Vial IV 06/15/24 14:44 40 mg QDAY JOANNA Administration Sodium Chloride 1 gm 05/17/24 14:00 05/17/24 13:58 Sodium Chloride 1 Gm Tablet PO 06/16/24 13:59 1 gm TID JOANNA Administration Sodium Chloride 3 ml 05/17/24 11:35 05/17/24 11:48 Sodium Chloride Rt Marleny 0.9% 3 Ml Nebu INH 06/16/24 11:34 3 ml PRN PRN Administration SOLN Plan Mr. Llamas is a 88 yo female with PMH of heart failure, unspecified arrythmia s/p pacemaker implantation, stroke, hypertension, who was brought in by ambulance due to AMS. Per family member patient was in her usual state of health, went shopping today and when she arrived home patient fainted when trying to get out of the car so EMS where called, during these episode family members describe she had her eyes open, starring blank, was unresponsive and her jaw was very tight , denied tonic clonic movements or incontinence. Upon EMS arrival patient was talkative oriented, vitals within normal limits, however she suddenly developed slurred speech so she was brought to the ED. Patient's daughter referred she had an appointment on Apr 30 with cardiology to assess pacemaker battery, however patient missed appointment. Patient's daughter refers patient has had arm pain for 1 day for which she could have taken more of her pain medications.ED course: On arrival patient's vitals BP 210/104, HR 60, RR 18, afebrile, saturating adequately on room air. Pertinent labs: No leukocytosis, sodium 132, potassium 5.3, UA unremarkable, U tox unremarkable. Stroke alert was called, teleneurology was consulted who referred patient was not a thrombolytic candidate as there where no focal deficits on examination suggestive of stroke. Upon teleneuro initial evaluation she was responsive, talkative and was able to follow commands with NIHSS. She subsequently became unresponsive, and was intubated for airway protection. During episode patient's vitals remained within normal limits. SOFTWARE SUPPORT ANALYST #Acute encephalopathy According to the family, patient has a history of repeat previous CVA. 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 unable to tolerate laying flat for 30 mins. In light of new findings on CT, will defer MRI -Neurology following- informed Dr. Christensen of new CT findings -Consult cardiology following -EEG- decrease wave forms bilaterally CVS #History of heart failure, hypertension and unspecified arrhythmia SP pacemaker implantation in 2012 -Patient missed appointment for pacemaker battery check up 2 weeks ago -Since arrival to the ED patient's heart rate within normal limits on telemetry -On arrival patient was hypertensive, now blood pressure within normal limits -echo pending Respiratory -S/P intubation for airway protection due to GCS less than 8 -ABG postintubation within normal limits --Pt. is extubated today (05/17), saturating well with increased RR -Morphine 2mg Q4h for dyspnea and morphine Q30m for persistent dyspnea -airway sucking ordered PRN Renal -no active disease GI -05/17 OG tube removed and NG tube inserted -started tube feedings but patient is at increased risk of aspiration due to stroke deficit. will hold tube feeding for now Infectious -no active disease -blood cultures no growth in 2/2 in 24 hours -Negative for MRSA -ET sputum gram stain shows- GPR and GPC -ET sputum culture pending Heme-onc -no active disease Disposition: Patient admitted to ICU following intubation for airway protection due to acute encephalopathy Diet and fluids: hold Tube feeds, as patient is increased risk of aspiration DVT prophylaxis: Heparin GI prophylaxis: Pantropozole 40 IV Q4H PRN CODE STATUS: DNR/DNI Alvarado: In place Lines: Peripheral Assessment and plan discussed with my attending Dr. Michael Palafox (PGY-1)- Internal medicine resident
[2024-05-17 19:14] LABS: Sodium 134 mMol/L (136-145)
[2024-05-17] MEDS: GLYCOPYRROLATE INJ 0.2 MG/ML VIAL 0.1 MG IV (20:40)
[2024-05-17] MEDS: SCOPOLAMINE 1 MG TDSY TOP (20:40)
--- NOTE | 2024-05-17 21:06 | PD.NEUROPROG ---
Documentation for date of: 05/17/24 Subjective Subjective Interval history: Mrs. Llamas was seen in ICU with family at the bedside. Patient got extubated today and is protecting her airway, maintaining her oxygen saturation. Moving left upper and lower extremities purposefully. Continue to have aphasia, dense hemiplegia on the right Exam - Neurology Vital Signs Temp Pulse Resp BP Pulse Ox O2 Del Method O2 Flow Rate 99.8 F 77 17 136/82 H 100 Mechanical Ventilation 4 05/17/24 16:00 05/17/24 19:00 05/17/24 19:00 05/17/24 19:00 05/17/24 19:00 05/17/24 07:00 05/17/24 18:30 FiO2 30 05/17/24 10:24 Narrative Exam GENERAL APPEARANCE: Well developed, well-nourished female in no acute distress HEENT: Normocephalic, atraumatic, Pupils: Equal reacting to light. NECK: Supple, no JVD or bruits. CARDIOVASULAR: Heart: S1, S2 heard, regular without S3-S4 or murmur no rubs or gallops. LUNGS/CHEST: Clear to auscultation bilaterally. No rails, rhonchi, or wheezing. Normal inspection. ABDOMEN: Soft, nontender, with normal bowel sounds. No pulsatile masses. No rebound, rigidity, or guarding. Normal inspection and palpation. EXTREMITIES: Normal inspection and palpation. No edema, clubbing or cyanosis. SKIN: Warm and dry without rashes. Normal inspection. MUSCULOSKELETAL: No cervical, thoracic, lumbar or midline bony tenderness. Normal inspection. NEURO: She keeps her eyes open inconsistently, does not track. Able to move the left upper and lower extremities purposefully but not on commands consistently. She has dense right hemiplegia and aphasia. Brainstem function: Intact. Rest of the exam limited. No signs of meningeal irritation noted. PSYCHIATRIC: Limited Objective Labs 05/17/24 05:30 05/17/24 20:43 Labs: Laboratory Results - last 24 hr 05/17/24 05/17/24 05/17/24 04:54 05:30 12:50 WBC 10.5 RBC 3.52 L Hgb 10.2 L Hct 30.6 L MCV 87 MCH 29.0 MCHC 33.3 RDW Std Deviation 50.4 H Plt Count 166 D Neut % (Auto) 78 Lymph % (Auto) 11 [place] % (Auto) 10 Eos % (Auto) 0 Baso % (Auto) 0 Neut # (Auto) 8.2 H Lymph # (Auto) 1.1 [place] # (Auto) 1.1 H Eos # (Auto) 0.0 Baso # (Auto) 0.0 Immature Gran # (Auto) 0.04 H Absolute Nucleated RBC 0.00 Immature Gran % 0 Nucleated RBC % 0 Puncture Site Right Radial ABG pH 7.48 H ABG pCO2 36 ABG pO2 111 H D ABG HCO3 27 H ABG O2 Saturation 100 H ABG Base Excess 3 FiO2 35 Sodium 133 L 132 L Potassium 3.8 Chloride 100 Carbon Dioxide 24.2 Anion Gap 9 BUN 17 Creatinine 0.7 Estim Creat Clear Calc 51.4 L eGFR > 60 BUN/Creatinine Ratio 24 H Glucose 109 H Calculated Osmolality 268 L Calcium 9.1 Corrected Calcium 9.4 Phosphorus 2.2 L Magnesium 2.1 Total Bilirubin 1.2 D AST 32 ALT 17 Alkaline Phosphatase 78 Total Protein 6.3 Albumin 3.6 Globulin 2.7 Albumin/Globulin Ratio 1.3 05/17/24 05/17/24 05/17/24 15:23 17:00 18:52 WBC RBC Hgb Hct MCV MCH MCHC RDW Std Deviation Plt Count Neut % (Auto) Lymph % (Auto) [place] % (Auto) Eos % (Auto) Baso % (Auto) Neut # (Auto) Lymph # (Auto) [place] # (Auto) Eos # (Auto) Baso # (Auto) Immature Gran # (Auto) Absolute Nucleated RBC Immature Gran % Nucleated RBC % Puncture Site ABG pH ABG pCO2 ABG pO2 ABG HCO3 ABG O2 Saturation ABG Base Excess FiO2 Sodium 134 L 134 L 134 L Potassium Chloride Carbon Dioxide Anion Gap BUN Creatinine Estim Creat Clear Calc eGFR BUN/Creatinine Ratio Glucose Calculated Osmolality Calcium Corrected Calcium Phosphorus Magnesium Total Bilirubin AST ALT Alkaline Phosphatase Total Protein Albumin Globulin Albumin/Globulin Ratio ABG Interpretation ABG results: 05/14/24 05/14/24 05/15/24 17:16 18:30 04:15 ABG pH 7.36 7.49 H D 7.45 ABG pCO2 55 H 39 D 42 ABG pO2 70 L 469 H D 94 D ABG HCO3 31 H 30 H 29 H ABG O2 Saturation 94 101 H 98 ABG Base Excess 5 H 6 H 4 H 05/16/24 05/17/24 04:25 04:54 ABG pH 7.43 7.48 H ABG pCO2 42 36 ABG pO2 63 L D 111 H D ABG HCO3 28 H 27 H ABG O2 Saturation 98 100 H ABG Base Excess 4 H 3 Assessment & Plan Assessment and plan (1) Altered mental status: Status: Acute Assessment and plan: Secondary to ischemic encephalopathy from a massive left MCA stroke EEG showed diffuse slowing Will continue to monitor her closely for any seizures or change in mental status secondary to herniation from cerebral edema. CODE STATUS has been changed/DNR as per patient's wishes (2) S/P cardiac pacemaker procedure: Status: Acute Assessment and plan: Will hold off on the MRI brain I even though the pacemaker is MRI compatible as the management does not change. (3) Hypertension: Status: Chronic Assessment and plan: Continue to monitor blood pressure closely and treat accordingly
[2024-05-17 21:25] LABS: Sodium 137 mMol/L (136-145)
[2024-05-17 23:39] LABS: Sodium 136 mMol/L (136-145)
[2024-05-18] VITALS (18 sets, daily range): BP systolic 126–163; BP diastolic 64–109; PULSE 63–99; RESP 12–20; TEMP 36.6–36.7; O2SAT 93–100; BMI 28.1
[2024-05-18 01:54] LABS: Sodium 137 mMol/L (136-145)
[2024-05-18] MEDS: MORPHINE SULF INJ 10 MG/ML VIAL 2 MG IVP ×7 (05:02→22:01)
[2024-05-18] MEDS: HEPARIN SOD INJ 5000 UNIT/ML VIAL SC (05:02)
[2024-05-18 06:09] LABS: Sodium 143 mMol/L (136-145)
--- NOTE | 2024-05-18 06:15 | PC.NURSE ---
put the rder to DC the morphine DRip, celso made to the to clarifying on DC morphine. been requested to come and speak with the family.
--- NOTE | 2024-05-18 06:35 | PC.NURSE ---
came and speak with the family and per MD we are continuing the morphine drip.
[2024-05-18 08:58] LABS: Sodium 136 mMol/L (136-145)
[2024-05-18] MEDS: PANTOPRAZOLE INJ 40 MG VIAL IV (09:24)
--- NOTE | 2024-05-18 09:29 | PCS.ST ---
Limited swallow evaluation completed. Limited participation. Lack of awareness. No automatic responses to items presented. Turned head away and pushed hand away. Global aphasia. Non-oral nutrition needed. ST eval and tx for swallowing, and communication skills. Guarded prognosis
--- NOTE | 2024-05-18 13:24 | CHAP ---
09:30 AM Visited by spiritual care volunteer Provided prayer for Patient.
--- NOTE | 2024-05-18 14:26 | EVENTNT_ITS ---
Documentation for date of: 05/18/24 Event Note Event Note: Kandice is an 88 yo F w/ Hx of CHF, HTN, pacemaker who presented after fainting. Patient then became unresponsive in ED and was intubated. MRI was delayed due to pacemaker compatibility. Initial CT did not show hemorrhagic stro ke however, repeat Ct showed large L MCA ischemic stroke 4 days later. Patient was extubated but remains with R hemiparesis, dysphagia, and lethargic. Discussion to reintubate patient occurred however, family opted for comfort measures. Patient is DNR/DNI. This morning HR 73 RR 15 O2 sat 99% on 4L NC, BP 126/96. Recommendations from ICU to involve geriatric social work professor. Patient is on 2L O2 at home. Dr. Christensen(Neurologist) is following. We will assume care from the ICU team today at 1500 05/18/24. The patient's plan was discussed with attending Dr. Vigil and senior resident Dr. Vicki Carson DO PGY1 Internal Medicine Senior resident attestation: I discussed with and supervised the advertising internship physician who took care of this patient. I personally saw and examined the patient and discussed the assessment and plan with the entire medicine team, including my attending , I agree with the assessment and plan as documented above. MD Vicki PGY2
--- NOTE | 2024-05-18 15:15 | PC.NURSE ---
Pt. on comfort care family at bed side . Received pt. from ICU to med. surge
--- NOTE | 2024-05-18 15:16 | ESPR_ITS ---
<Statement entered by Qian Rodriguez MD - 05/19/24 07:55> TOTAL TIME: 45MINUTES ON DIRECT MEDICAL CARE, MANAGEMENT - COORDINATION AND COUNSELING > 50% OF TOTAL TIME I saw and evaluated the patient. I reviewed the resident?s note and agree with findings and plan as documented in the resident?s note. Patient remains extubated requiring nasotracheal suctioning but with morphine to premedicate given patient's distress when suctioned. Family has also requested palliative measures and are leaning towards comfort care once more family member arrive later today. On reexamination patient remains encephalopathic unable to follow commands with right hemiplegia. Will transfer to [facility] as family as family has requested to pursue comfort care later today Documentation for date of: 05/18/24 Subjective Subjective Interval history: 05/15/2024:Patient was seen and examined by the bedside. Patient is intubated and sedated. Continues to be hemodynamically stable. Admitted overnight, was intubated in the setting of altered mental status and inability to protect airways. MRI scheduled for today, but MRI checklist requires confirmation from the [facility] for MRI clearance, MRI was not done today. EEG ordered, pending. In-house neurology consulted. According to the family, patient was going out of the car when she became non- verbal, gaze was fixated, non-moving, family had to help her to get out of the car. In the ED she had a sudden decrease in her menation and she was intubated to protect her airways. They reported that she had been experiencing right arm pain and could have taken some pain meds. 05/16: Patient is seen and examined at bedside. Patient is intubated since 05/14/2024 and sedated. Patient's vital signs are stable and CBC and CMP has no significant changes. ABG findings are improving. Later in the afternoon patient is seen at bedside and patient is more awake and less sedated, patient seem mildly agitated pulling at the intubation tube. With family at bedside patient is interacting and responding to verbal commands. Goal is to wean off sedation as there are plans for extubation after MRI. MRI is still pending due to confirmation from [facility] for compatibility. 05/17: Patient is seen and examined at bedside. repeat CT scan findings include large acute infarct left middle cerebral artery distribution. Pt is able to move left side arm and lower extremity and is able to look at left side the patient is unable to move right arm or right lower extremity. Patient is responding to painful stimuli on the left side but not on the right. In light of new findings on the CT scan we will defer MRI for now. Discussion regarding CODE STATUS was taken place with patient's family. Patient was changed CODE STATUS from full code to DNR/DNI. Family would like an opportunity for siblings to be able to visit the patient before placing the patient on comfort care. Patient is able to maintain saturation on extubation with increased respiratory rate. Patient was unable to tolerate NG tube feedings as she is unable to swallow and has accumulated increased secretions. Will hold tube feeding for now as patient is at increased risk of aspiration. Discussed new findings with Dr. Christensen and she is following. 05/18: Patient is seen and examined at bedside. As previously discussed with the family, they would like to pursue comfort care after more family members arrive from out of state. This morning patient is increasingly lethargic, she is awake but increasingly somnolent. Compared to yesterday, today patient has decrease movement and strength in the left upper and lower extremities. Patient is unable to keep her eyes open to look around. Patient is on morphine as needed as part of palliative care not comfort care. Patient will require repeat gentle suctioning as needed and tolerated. Patient will be downgraded to [facility] and signout is given. Exam Vital Signs Temp Pulse Resp BP Pulse Ox O2 Del Method O2 Flow Rate 98.1 F 66 14 138/66 H 99 Mechanical Ventilation 4 05/18/24 12:01 05/18/24 15:01 05/18/24 15:01 05/18/24 15:01 05/18/24 15:01 05/17/24 07:00 05/18/24 06:23 FiO2 30 05/17/24 10:24 Narrative Exam GENERAL: AOx0, pt. is awake but is unable to follow command NEURO: awake, right side deficit, Pt responds to painful stimuli on left side HEENT: Atraumatic, Normocephalic. mucous membranes moist. Eyes open, symmetrical, & clear HEART: Normal Heart Sounds LUNGS: coarse breath sounds with increased respiratory rate ABDOMEN: soft, non-distended, non-tender, no guarding or rebound tenderness SKIN: No Rash or ecchymoses EXTREMITIES: No edema, Left upper and L. Lower extremity, pedal pulses palpated Objective Labs 05/17/24 05:30 05/18/24 08:22 Labs: Laboratory Results - last 24 hr 05/17/24 05/17/24 05/17/24 15:23 17:00 18:52 Sodium 134 L 134 L 134 L 05/17/24 05/17/24 05/18/24 20:43 22:57 01:31 Sodium 137 136 137 05/18/24 05/18/24 04:49 08:22 Sodium 143 136 ABG Interpretation ABG results: 05/14/24 05/14/24 05/15/24 17:16 18:30 04:15 ABG pH 7.36 7.49 H D 7.45 ABG pCO2 55 H 39 D 42 ABG pO2 70 L 469 H D 94 D ABG HCO3 31 H 30 H 29 H ABG O2 Saturation 94 101 H 98 ABG Base Excess 5 H 6 H 4 H 05/16/24 05/17/24 04:25 04:54 ABG pH 7.43 7.48 H ABG pCO2 42 36 ABG pO2 63 L D 111 H D ABG HCO3 28 H 27 H ABG O2 Saturation 98 100 H ABG Base Excess 4 H 3 Quality Measures Quality Measures stroke Suspected type of Stroke: Non Acute Last known well (date): 05/14/24 Last known well (time): 16:30 Tenecteplase given: Reason(s) Tenecteplase not given: Stroke severity too mild (non-disabling) not given Rehab services: PT evaluation ordered VTE Prophylaxis: pharmaceutical Antithrombotic by day 2:: not indicated (describe) Statin ordered: n/a Anticoagulation ordered for A-fib or flutter (current or hx): not indicated Advance care planning discussed with:: child Assessment & Plan Assessment Current Active Medications: Generic Name Dose Route Start Last Admin Trade Name Freq PRN Reason Stop Dose Admin Acetaminophen 650 mg 05/14/24 20:31 Acetaminophen Supp 650 Mg Supp [place] 06/13/24 20:30 Q6HR PRN Fever > 100.4 Glycopyrrolate 0.1 mg 05/17/24 20:19 05/17/24 20:40 Glycopyrrolate Inj 0.2 Mg/Ml Vial IV 06/16/24 20:18 0.1 mg QID PRN Administration increased secretions. Heparin Sodium (Porcine) 5,000 unit 05/14/24 22:00 05/18/24 15:04 Heparin Sod Inj 5000 Unit/Ml Vial SC 05/28/24 21:59 Not Given Q8HR JOANNA Sodium Chloride 450 ml/ IV 450 mls @ 10 mls/hr 05/17/24 22:20 05/18/24 06:14 Miscellaneous Supplies IV 05/19/24 19:19 0 mls/hr X1 ONE Infusion Labetalol HCl 10 mg 05/16/24 16:36 Labetalol Inj 5 Mg/Ml Vial 20 Ml IVP 06/15/24 16:35 Q2H PRN SBP >220 OR DBP >120 Morphine Sulfate 2 mg 05/17/24 13:42 05/18/24 13:26 Morphine Sulf Inj 10 Mg/Ml Vial IVP 05/22/24 13:41 2 mg Q30M PRN Administration persistent Dyspnea Ondansetron HCl 4 mg 05/14/24 16:43 05/17/24 00:01 Ondansetron Inj 2 Mg/Ml Inj 2 Ml IV 06/13/24 16:42 4 mg Q4HR PRN Administration NAUSEA OR VOMITING Pantoprazole Sodium 40 mg 05/16/24 14:45 05/18/24 09:24 Pantoprazole Inj 40 Mg Vial IV 06/15/24 14:44 40 mg QDAY JOANNA Administration Scopolamine 1 mg 05/17/24 20:30 05/17/24 20:40 Scopolamine 1 Mg Tdsy TOP 06/16/24 20:29 1 mg Q3D JOANNA Administration Sodium Chloride 1 gm 05/17/24 14:00 05/18/24 15:05 Sodium Chloride 1 Gm Tablet PO 06/16/24 13:59 Not Given TID JOANNA Sodium Chloride 3 ml 05/17/24 11:35 05/17/24 11:48 Sodium Chloride Rt Marleny 0.9% 3 Ml Nebu INH 06/16/24 11:34 3 ml PRN PRN Administration SOLN Plan Mr. Llamas is a 88 yo female with PMH of heart failure, unspecified arrythmia s/p pacemaker implantation, stroke, hypertension, who was brought in by ambulance due to AMS. Per family member patient was in her usual state of health, went shopping today and when she arrived home patient fainted when trying to get out of the car so EMS where called, during these episode family members describe she had her eyes open, starring blank, was unresponsive and her jaw was very tight , denied tonic clonic movements or incontinence. Upon EMS arrival patient was talkative oriented, vitals within normal limits, however she suddenly developed slurred speech so she was brought to the ED. Patient's daughter referred she had an appointment on Apr 30 with cardiology to assess pacemaker battery, however patient missed appointment. Patient's daughter refers patient has had arm pain for 1 day for which she could have taken more of her pain medications.ED course: On arrival patient's vitals BP 210/104, HR 60, RR 18, afebrile, saturating adequately on room air. Pertinent labs: No leukocytosis, sodium 132, potassium 5.3, UA unremarkable, U tox unremarkable. Stroke alert was called, teleneurology was consulted who referred patient was not a thrombolytic candidate as there where no focal deficits on examination suggestive of stroke. Upon teleneuro initial evaluation she was responsive, talkative and was able to follow commands with NIHSS. She subsequently became unresponsive, and was intubated for airway protection. During episode patient's vitals remained within normal limits. MAIL ORDER BILLER #Acute encephalopathy According to the family, patient has a history of repeat previous CVA. 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 unable to tolerate laying flat for 30 mins. In light of new findings on CT, will defer MRI -Neurology following- informed Dr. Christensen of new CT findings -Consult cardiology following -EEG- decrease wave forms bilaterally CVS #History of heart failure, hypertension and unspecified arrhythmia SP pacemaker implantation in 2012 -Patient missed appointment for pacemaker battery check up 2 weeks ago -Since arrival to the ED patient's heart rate within normal limits on telemetry -On arrival patient was hypertensive, now blood pressure within normal limits -echo pending Respiratory -S/P intubation for airway protection due to GCS less than 8 -ABG postintubation within normal limits -Pt. is extubated today (05/17), saturating well with increased RR -Morphine 2mg Q4h for dyspnea and morphine Q30m for persistent dyspnea -airway sucking ordered PRN Renal -no active disease GI -05/17 OG tube removed and NG tube inserted -started tube feedings but patient is at increased risk of aspiration due to stroke deficit. will hold tube feeding for now Infectious -no active disease -blood cultures no growth in 2/2 in 24 hours -Negative for MRSA -ET sputum gram stain shows- GPR and GPC -ET sputum culture rare gram positive cocci and gram positive rods Heme-onc -no active disease Disposition: Patient is transferred to [facility] as family plans to transition to comfort care Diet and fluids: hold Tube feeds, as patient is increased risk of aspiration DVT prophylaxis: Heparin GI prophylaxis: Pantropozole 40 IV Q4H PRN CODE STATUS: DNR/DNI Alvarado: In place Lines: Peripheral Assessment and plan discussed with my attending Dr. Michael Palafox (PGY-1)- Internal medicine resident
[2024-05-18] MEDS: Morphine IV Drip 100mg/100ml 100 ML IV ×2 (17:14→18:45)
--- NOTE | 2024-05-18 18:05 | PC.NURSE ---
Pt. on comfort care, family at bed side , courtesy care is outside the room. No orders for boluses doses yet, will keep monitoring the pt.
[2024-05-18] MEDS: GLYCOPYRROLATE INJ 0.2 MG/ML VIAL 0.1 MG IV (20:56)
--- NOTE | 2024-05-19 00:27 | PD.DPN ---
Documentation for date of: 05/19/24 Pronouncement Note Date and Time of Date of : 05/19/24 Time of : 00:18 PCOD Preliminary cause of : Cardiopulmonary arrest Contributing Factors (1) Altered mental status: (2) S/P cardiac pacemaker procedure: (3) Hypertension: Additional Data Confirmation of : no pulse, no respirations, no heart sounds and pupils fixed and dilated Family: at bedside Attending/PCP notified?: Yes Attending physician: Theodore Yi MD Was code activated?: No Autopsy requested?: No road test examiner notified?: Yes Organ bank notified?: Yes Advance directives: No
--- NOTE | 2024-05-19 02:56 | PC.NURSE ---
Daughter of patient, Lakia, updated phone number is [phone].
--- NOTE | 2024-05-19 02:59 | PC.NURSE ---
Patient on comfort care was pronounced at 1218 by hospitalist, Dr. Yi. Patient family at bedside. Donor network called and [facility]. Post-mortem care provided, IV and monroe removed. 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
--- NOTE | 2024-05-19 03:26 | PC.NURSE ---
Morphine left in bag was wasted with PETRONA Holland. Wasted: 94mg.
--- NOTE | 2024-05-19 14:33 | PD.DDS ---
Documentation for date of: 05/19/24 Summary Date and Time Date of admission: 05/14/24 21:36 Date of : 05/19/24 Time of : 00:18 Summary Hospital Course: 88 yo female with PMH of heart failure, unspecified arrythmia s/p pacemaker implantation, stroke, hypertension, who was brought in by ambulance due to AMS. Per family member patient was in her usual state of health, went shopping today and when she arrived home patient fainted when trying to get out of the car so EMS where called, during these episode family members describe she had her eyes open, starring blank, was unresponsive and her jaw was very tight , denied tonic clonic movements or incontinence. Upon EMS arrival patient was talkative oriented, vitals within normal limits, however she suddenly developed slurred speech so she was brought to the ED. Patient's daughter referred she had an appointment on Apr 30 with cardiology to assess pacemaker battery, however patient missed appointment. Patient's daughter refers patient has had arm pain for 1 day for which she could have taken more of her pain medications. Patient then became unresponsive in ED and was intubated. MRI was delayed due to pacemaker compatibility. Initial CT did not show hemorrhagic stroke however, repeat Ct showed large L MCA ischemic stroke 4 days later. Patient was extubated but remains with R hemiparesis, dysphagia, and lethargic. Discussion to reintubate patient occurred however, family opted for comfort measures. Patient is DNR/DNI. This morning HR 73 RR 15 O2 sat 99% on 4L NC, BP 126/96. Dr. Christensen(Neurologist) was involved in her care. Family reported wanting the patient to be comfortable and not be in pain. Patient was started on Morphine drip @ 1600 due to dyspnea. Scopolamine patch was placed the day before to help manage her secretions. Time of 05/19/24 0018. Additional Data Confirmation of as documented by pronouncing clinician: no pulse, no respirations, no heart sounds and pupils fixed and dilated Family: at bedside Attending/PCP notified?: Yes Attending physician: Theodore Yi MD Was code activated?: No Autopsy requested?: No yarn skeins examiner notified?: Yes Organ bank notified?: Yes Advance directives: No Visit Providers Provider Primary care physician: Physician No Primary/Family Consults: 05/14/24 16:43 Consult to Neurology / Tele-Neurology Routine Comment: Consulting Provider: [facility] 05/14/24 20:38 Consult to Neurology / Tele-Neurology Routine Comment: Consulting Provider: Darryn Christensen 05/14/24 20:59 Consult to Cardiology Stat Comment: pacemaker checkup Consulting Provider: Corina Soni 05/16/24 18:12 Referral Speech Therapy Routine Comment: Diagnosis Contributing Factors (1) Altered mental status: (2) S/P cardiac pacemaker procedure: (3) Hypertension: Discharge Plan Plan Patient Disposition: Prescriptions/Referrals Referrals: No Primary/Family,Physician [Primary Care Provider] - Patient/Caregiver Discharge Instructions Print Language: Bengali
== END 2024-05-19 00:18 | disposition expired | DRG 64 ==
LOC: SERX 19:50 → SERHOLD 22:00 → S2SX 22:31 → S3SX 05-18 15:24
PROVIDERS: Emergency Medicine; Student in an Organized Health Care Education/Training Program; Admitting Provider Internal Medicine; Emergency Provider Emergency Medicine; Visit Provider Student in an Organized Health Care Education/Training Program
DX: I63.512 Cerebral infarction due to unspecified occlusion or stenosis of left middle cerebral artery (principal); J96.01 Acute respiratory failure with hypoxia; G81.91 Hemiplegia, unspecified affecting right dominant side; G93.49 Other encephalopathy; R47.01 Aphasia; R29.810 Facial weakness; I11.0 Hypertensive heart disease with heart failure; R13.10 Dysphagia, unspecified; I50.9 Heart failure, unspecified; Z66 Do not resuscitate; I95.9 Hypotension, unspecified; I46.9 Cardiac arrest, cause unspecified; Z95.0 Presence of cardiac pacemaker; Z51.5 Encounter for palliative care; Z86.73 Personal history of transient ischemic attack (TIA), and cerebral infarction without residual deficits
CPT/HCPCS: 36415; 36600; 70450; 70496; 70498; 80048; 80053; 80307; 81001; 82803; 83735; 84100; 84295; 84443; 84484; 84703; 85025; 85610; 85730; 87040; 87081; 87086; 87205; 92610; 93005; 93306; 94002; 94003; 95816; 99291; A4649; J1643; J2270; J2405; J2470; J2704; J3010; J3475; J3490; J7040; J7131; Q9967; A9270; J1596; J1644